=== PATIENT | male | born 1950 | race Caucasian/White ===

== ENCOUNTER 2018-05-11 10:09 | Day surgery (SDC) | payer OTHER, SELFPAY ==
--- NOTE | 2018-05-11 | PATH_ITS ---
[facility] Accession Number: [id number] . 01 Material submitted: . SIGMOID COLON POLYP . 02 Diagnosis: Biopsy, Sigmoid Colon Polyp: Hyperplastic polyp. MRV/05/12/2018 . 02 Electronically signed: . Johnny Foreman MD, Pathologist NPI- [id number] . 01 Gross description: . Received one formalin-filled container labeled with the patient's name and labeled sigmoid colon polyp. The specimen consists of a 0.4 cm portion of tissue, entirely submitted in one cassette. ([id number]) /FRR . 02 Pathologist provided ICD-10: K63.5 . 02 CPT . 569764 Specimen Comment: A duplicate report has been generated due to demographic updates. Performed at: 01 [facility] [address] [place] [address], [place], [place] [id number] MD Damian Phillips MD Phone: [phone] Performed at: 02 [facility] [address] [place], [place] [id number] MD Reshma Silva MD Phone: [phone]
[2018-05-11 11:10] VITALS: BP 145/84; PULSE 63; RESP 15; TEMP 36.4; O2SAT 94; BMI 35.9
[2018-05-11] MEDS: SODIUM CHLORIDE 0.9% 1,000 ML 200 ML IV (11:30)
--- NOTE | 2018-05-11 12:21 | PM.PREOP ---
Pre-operative Note Interval Note History & Physical reviewed/Exam performed by Physician: Yes Changes to H&P: No ASA Class (for procedural sedation): II
[2018-05-11] MEDS: MIDAZOLAM 5 MG/5 ML VIAL IV (12:35)
[2018-05-11] MEDS: fentaNYL 250 MCG/5 ML INJ IV (12:36)
[2018-05-11 12:49] VITALS: BP 131/83; PULSE 60; RESP 17; TEMP 36.7; O2SAT 94
--- NOTE | 2018-05-11 12:51 | P.OP.ENDO_ITS ---
Operative Date/Time/Diagnoses Date of procedure: 05/11/18 Procedure & Clinicians Study performed: Colonoscopy with biopsy Indications: Colon cancer screening. Last colonoscopy was 10 years ago. Sedation: 5 mg midazolam. 100 mcg fentanyl. Moderate conscious sedation was administered by the endoscopy nurse and supervised by the endoscopist. The following parameters were monitored: Oxygen saturation, heart rate, blood pressure, and response to care. Procedure Notes Procedure in detail: Prior to the procedure, history and physical was performed, and patient medications and allergies were reviewed. Preprocedure nursing history and assessment was reviewed. Patient identification and proposed procedure were verified by the physician and nurse in the procedure room. The physical status of the patient was reassessed after the procedure. After informed consent was obtained including risks, benefits, and alternatives, the scope was passed under direct vision. Throughout the procedure, the patient's blood pressure, pulse, and oxygen saturations were monitored continuously. The colonoscope was introduced through the anus and advanced to the cecum as wilder ntified by the appendiceal orifice and ileocecal valve. The patient tolerated the procedure well. Bowel prep was deemed adequate to detect polyps greater than 5 mm. ROMEO and perianal examinations were unremarkable. Retroflexion in the rectum revealed grade 1 internal hemorrhoids. Many medium mouthed diverticuli were seen in the sigmoid colon. A 4 mm sessile polyp was removed with a cold snare and retrieved. Impression: Internal hemorrhoids Sigmoid colon diverticulosis 3 mm sigmoid colon polyp removed Sedation minutes: 24 Complications: other (None. EBL minimal) Plan for aftercare: Follow-up pathology results Repeat colonoscopy at a date to be determined based on pathology results High fiber diet Resume home medications Discharge home with escort
[2018-05-11 12:54] VITALS: BP 132/79; PULSE 67; RESP 16; O2SAT 93
[2018-05-11 12:59] VITALS: BP 125/82; PULSE 60; RESP 14; O2SAT 94
[2018-05-11 13:04] VITALS: BP 126/83; PULSE 58; RESP 15; O2SAT 93
[2018-05-11 13:20] VITALS: BP 125/84; PULSE 64; RESP 16; TEMP 36.7; O2SAT 95
--- NOTE | 2018-05-11 13:30 | SUR.PHASEII ---
stable phase 2 belly soft, no nausea.
--- NOTE | 2018-06-08 16:58 | PM.HP.1 ---
History of Present Illness Chief complaint: [id number] Colonoscopy Patient History Social History household members: spouse Family & Social History Social History: household members spouse Meds Home Medications Medication Instructions Recorded Confirmed Type amlodipine 10 mg PO DAILY 05/11/18 05/11/18 History aspirin [Aspir-81] 81 mg PO DAILY 05/11/18 05/11/18 History Allergies Allergy/AdvReac Type Severity Reaction Status Date / Time Sulfa (Sulfonamide Allergy Mild Rash Verified 05/10/18 15:13 Antibiotics) Review of Systems Review of Systems All systems reviewed & are unremarkable except as noted in HPI and below Exam Vital Signs (past 8 hours): Oxygen Delivery Method Room Air Narrative Exam Narrative: Awake alert and oriented x3, pupils equal round reactive to light, heart regular rate rhythm, lungs clear to auscultation bilaterally, abdomen soft nontender nondistended, extremities without edema Assessment & Plan Assessment & Plan narrative: Colon cancer screening, colonoscopy
== END 2018-05-11 13:20 | disposition home or self-care (01) ==
PROVIDERS: Family Provider Internal Medicine; PCP Internal Medicine; Visit Provider Internal Medicine
PROC: 0DJD8ZZ Inspection of Lower Intestinal Tract, Via Natural or Artificial Opening Endoscopic (ICD-10-PCS; CPT 45378; principal; 2018-05-11 11:30)
DX: Z12.11 Encounter for screening for malignant neoplasm of colon (principal); K64.0 First degree hemorrhoids; K57.30 Diverticulosis of large intestine without perforation or abscess without bleeding; D12.5 Benign neoplasm of sigmoid colon
CPT/HCPCS: 45385; J2250; J3010

== ENCOUNTER → 2019-08-11 10:38 | Outpatient (CLI) | payer OTHER, SELFPAY ==
[2019-08-11 11:22] LABS: Alanine Aminotransferase 19 IU/L (<50); Albumin 4.3 g/dL (3.5-5.0); Albumin Globulin Ratio 1.5 (1.0-2.8); Alkaline Phosphatase 35 U/L (38-126); Aspartate Aminotransferase 24 IU/L (17-59); Bilirubin Total 0.6 mg/dL (0.2-1.3); Blood Urea Nitrogen 20 mg/dL (9-20); Calcium 9.5 mg/dL (8.4-10.2); Carbon Dioxide 25 mmol/L (22-32); Chloride 103 mmol/L (98-107); Estimated Glomerular Filt Rate > 60.0 mL/min (>60); Globulin 2.8 g/dL (1.7-4.1); Glucose 131 mg/dL (80-110); HEMOLYSIS < 15 (0-50); Potassium 4.3 mmol/L (3.4-5.1); Sodium 138 mmol/L (137-145); Total Protein 7.1 g/dL (6.3-8.2)
[2019-08-11 11:53] LABS: Prostate Specific Antigen Scrn 0.605 ng/mL (0.1-4.0)
== END ==
PROVIDERS: Family Provider Internal Medicine; PCP Student in an Organized Health Care Education/Training Program; Referring Provider Student in an Organized Health Care Education/Training Program; Visit Provider Student in an Organized Health Care Education/Training Program
DX: Z12.5 Encounter for screening for malignant neoplasm of prostate (principal); I10 Essential (primary) hypertension; Z86.19 Personal history of other infectious and parasitic diseases
CPT/HCPCS: 36415; 80053; G0103

== ENCOUNTER → 2019-10-03 08:15 | Outpatient (CLI) | payer OTHER, SELFPAY ==
--- NOTE | 2019-10-03 08:16 | DI.US.S_ITS ---
PROCEDURE: US ABD AORTA ANEURYSM SCREEN INDICATIONS: HX SMOKING TECHNIQUE: Real time scanning was performed of the aorta and iliac arteries, with image documentation. COMPARISON: None. FINDINGS: Aorta: Proximal aortic diameter measures 2.2 cm. Mid-aorta measures 2 cm. Distal aortic diameter is 1.7 cm. Iliac arteries: Right common iliac artery measures 1.4 cm. Left common iliac artery measures 1.3 cm. IMPRESSION: Negative for aneurysm. Dictated by: Ryan Viveros M.D. on 10/03/2019 at 9:10 Approved by: Ryan Viveros M.D. on 10/03/2019 at 9:11
== END ==
PROVIDERS: Family Provider Internal Medicine; PCP Student in an Organized Health Care Education/Training Program; Referring Provider Student in an Organized Health Care Education/Training Program; Visit Provider Student in an Organized Health Care Education/Training Program
DX: Z13.6 Encounter for screening for cardiovascular disorders (principal); Z87.891 Personal history of nicotine dependence
CPT/HCPCS: 76706

== ENCOUNTER → 2020-05-03 14:24 | Outpatient (CLI) | payer MEDICARE, SELFPAY ==
[2020-05-03] MEDS: COVID-19 VACC #1, MRNA(MOD) 100 MCG/0.5 ML VIAL IM (14:31)
== END ==
PROVIDERS: Family Provider Internal Medicine; PCP Student in an Organized Health Care Education/Training Program; Visit Provider Internal Medicine
DX: Z23 Encounter for immunization (principal)
CPT/HCPCS: 0011A; 91301

== ENCOUNTER → 2020-05-30 07:56 | Outpatient (CLI) | payer MEDICARE, SELFPAY ==
[2020-05-30] MEDS: COVID-19 VACC #2, MRNA(MOD) 100 MCG/0.5 ML VIAL IM (08:02)
== END ==
PROVIDERS: Family Provider Internal Medicine; PCP Student in an Organized Health Care Education/Training Program; Visit Provider Internal Medicine
DX: Z23 Encounter for immunization (principal)
CPT/HCPCS: 0012A; 91301

== ENCOUNTER → 2020-08-20 11:25 | Outpatient (CLI) | payer OTHER, SELFPAY ==
[2020-08-20 12:23] LABS: BUN Creatinine Ratio 23.5 (6-22); Blood Urea Nitrogen 16 mg/dL (9-20); Calcium 8.9 mg/dL (8.4-10.2); Carbon Dioxide 27 mmol/L (22-32); Chloride 104 mmol/L (98-107); Cholesterol 164 mg/dL (140-199); Estimated Glomerular Filt Rate > 60.0 mL/min (>60); Glucose 94 mg/dL (80-110); HDL Cholesterol 42 mg/dL (40-60); HEMOLYSIS < 15 (0-50); LDL Cholesterol Calculated 93 mg/dL (<100); Potassium 4.1 mmol/L (3.4-5.1); Sodium 136 mmol/L (137-145); Triglycerides 144 mg/dL (35-150)
== END ==
PROVIDERS: Family Provider Internal Medicine; PCP Student in an Organized Health Care Education/Training Program; Referring Provider Student in an Organized Health Care Education/Training Program; Visit Provider Student in an Organized Health Care Education/Training Program
DX: Z13.220 Encounter for screening for lipoid disorders (principal); I10 Essential (primary) hypertension
CPT/HCPCS: 36415; 80048; 80061

== ENCOUNTER → 2021-02-07 13:32 | Outpatient (CLI) | payer MEDICARE, SELFPAY ==
[2021-02-07] MEDS: COVID-19 VACC #3, MRNA(MOD) 50 MCG/0.25 ML VIAL IM (13:36)
== END ==
PROVIDERS: Family Provider Internal Medicine; PCP Student in an Organized Health Care Education/Training Program; Visit Provider Internal Medicine
DX: Z23 Encounter for immunization (principal)
CPT/HCPCS: 0013A; 91301

== ENCOUNTER → 2021-08-04 10:50 | Outpatient (CLI) | payer OTHER, SELFPAY ==
[2021-08-04 12:06] LABS: Add Manual Diff / Slide Review NO; Basophils Absolute Auto 0 /uL (0-100); Basophils Percent Auto 0.5 % (0-2); Eosinophils Absolute Auto 100 /uL (0-450); Eosinophils Percent Auto 1.8 % (2-4); Hematocrit 41.5 % (41-53); Hemoglobin 14.4 g/dL (13.5-17.5); Lymphocytes Absolute Auto 1400 /uL (1100-4500); Lymphocytes Percent Auto 27.4 % (25-40); Mean Corpuscular HGB Conc 34.6 % (30-36); Mean Corpuscular Hemoglobin 31.8 PG (26-34); Monocytes Absolute Auto 1100 /uL (0-900); Monocytes Percent Auto 20.5 % (3-14); Neutrophils Absolute Auto 2600 /uL (1500-7000); Neutrophils Percent Auto 49.8 % (50-75); Platelet Count 175 X10^3/uL (150-400); Red Blood Cell Count 4.52 X10^6/uL (4.5-5.9); Red Cell Distribution Width 13.9 % (11.6-14.8); White Blood Cell Count 5.2 X10^3/uL (4.5-11.0)
[2021-08-04 12:16] LABS: BUN Creatinine Ratio 22.4 (6-22); Blood Urea Nitrogen 17 mg/dL (9-20); Calcium 9.2 mg/dL (8.4-10.2); Carbon Dioxide 29 mmol/L (22-32); Chloride 102 mmol/L (98-107); Estimated Glomerular Filt Rate > 60 mL/min (>60); Glucose 107 mg/dL (80-110); HEMOLYSIS < 15 (0-50); Sodium 136 mmol/L (137-145)
[2021-08-04 12:25] LABS: Vitamin D 25 Hydroxy (D3) 38.4 ng/mL (30.0-100.0)
[2021-08-04 12:43] LABS: TSH w/ Reflex to FT4 1.81 uIU/mL (0.47-4.68)
[2021-08-04 13:02] LABS: Vitamin B12 317 pg/mL (239-931)
== END ==
PROVIDERS: Family Provider Internal Medicine; PCP Student in an Organized Health Care Education/Training Program; Referring Provider Student in an Organized Health Care Education/Training Program; Visit Provider Student in an Organized Health Care Education/Training Program
DX: I10 Essential (primary) hypertension (principal); R41.3 Other amnesia
CPT/HCPCS: 36415; 80048; 82306; 82607; 84443; 85025

== ENCOUNTER 2022-02-05 09:45 | Outpatient (RCR) | payer OTHER, SELFPAY ==
--- NOTE | 2021-12-25 16:00 | PT.OPPOC ---
Physical, Occupational & Speech Therapy At [facility] Current Diagnoses Bilateral primary osteoarthritis of knee (12/25/21) Difficulty in walking, not elsewhere classified (12/25/21) Visit Care Team Role Provider Type Conor Jarquin MD Attending Provider Physician Family Provider Primary Care Provider Referring Provider Specialty: Internal Medicine Address: [address] [place] [address], [address], [facility] Email: [email or web address] Plan Of Care PT-OP-T Assessment and Plan Start: 12/25/21 08:37 Freq: Status: Active Protocol: Document 12/25/21 16:00 AW (Rec: 12/30/21 08:44 AW [id number]) Physical Therapy Assessment Rehab Potential Rehabilitation Potential Good Evaluation Complexity Number of Personal Factors/Comorbidities 1-2 Number of Body Systems Impaired 1-2 Clinical Presentation at Evaluation Stable Impairments Impairments Balance,Gait,Pain,ROM,Strength Goals Three Impairment pain Short Term Goal (STG) Pt will ascend and descend 28 steps with 2/10 or less pain STG Duration 4 weeks - 01/22/22 Election Supervisor Goal (LTG) Pt will ascend and descend 28 steps without pain LTG Duration 10 weeks - 03/05/22 Two Impairment balance Election Supervisor Goal (LTG) Pt will perform single leg stance without shear 30 seconds each side as a measure of improved strength and balance. LTG Duration 10 weeks - 03/05/22 One Impairment lacks HEP Short Term Goal (STG) Pt will be instructed in HEP for hip mobility and LE strength to support therapy services provided in clinic. STG Duration 4 weeks - 01/22/22 Election Supervisor Goal (LTG) Pt will be independent with HEP for hip mobility and LE strength to improve gait and manage pain symptoms. LTG Duration 10 weeks - 03/05/22 Assessment Summary Assessment Ulices is a 71 year old man who attends outpatient physical therapy with complaints of bilateral knee pain which has been going on for about 10 years but is worsening recently and interfering with his ability to walk long distances and to manage stairs. He presents with significant mobility restrictions at both hips which appear to be related to soft tissue tightness although joint restriction can not be ruled out. His knees are stable on all stress testing and testing does not indicate intraarticular involvement. He does have a positive patellar grind test so suspect patellofemoral dysfunction. Pt is expected to benefit from skilled PT to address hip mobility, general lower extremity strength, and gait to improve his pain. Physical Therapy Plan Frequency and Duration Frequency of Treatment 1-2x/week Duration of treatment (weeks) 10 Plan of Care Start Date 12/25/21 Plan of Care End Date 03/05/22 Therapeutic Interventions Therapeutic Interventions Aquatic Therapy,Gait Training, Home Exercise Program,Manual Therapy,Neuromuscular Re- education,Self-Care/Home Management,Taping,Therapeutic Activities,Therapeutic Exercises Modalities Cold Pack/Ice Massage,Electric Stimulation,Hot Packs Next Visit Focus/Plan Next Note Type Treatment Note Next Visit Plan Warm up on bike. Review initial HEP stretches - add as tolerated. Assess stairs, squat. QS/SLR with rotation, clamshell with resist. HS curl . Sit to stand. Plan of Care Dates Plan of Care Start Date 12/25/21 Plan of Care End Date 03/05/22 Electronically Signed by: Mickie Arguelles, PT 12/30/21 0845 If you are in agreement with this Plan of Care, please return a signed and dated copy. I have reviewed this Plan of Care and certify that the skilled therapy services above are required to meet the patient?s needs. Physician Signature Date Printed Name and Credentials Clinical Instructor Signature Printed Name and Credentials
--- NOTE | 2021-12-25 16:00 | PT.OIE ---
Current Diagnoses Bilateral primary osteoarthritis of knee (12/25/21) Difficulty in walking, not elsewhere classified (12/25/21) Past Medical History (Last Updated 06/06/19 @ 20:55 by Ana Jamison) Chicken pox (~1951) Hepatitis C (~1971) Measles (~1952) Migraines (~1964) Shingles (~2019) Visit Care Team Role Provider Type Conor Jarquin MD Attending Provider Physician Family Provider Primary Care Provider Referring Provider Specialty: Internal Medicine Address: [address] [place] [address], [address], [facility] Email: [email or web address] Physical Therapy Initial Evaluation PT-OP-A Visit Information Start: 12/25/21 08:37 Freq: Status: Active Protocol: Document 12/25/21 16:00 AW (Rec: 12/25/21 08:47 AW [id number]) Out-Patient Physical Therapy Visit Information Visit Information Visit Type Initial Evaluation Visit Start Time 15:15 Visit Stop Time 16:00 Total Visit Minutes 45 Visit Number 1 Number of STOPPER SETTER Visits 0 Evaluation Information Evaluation Date 12/25/21 PT-OP-B Current Condition Start: 12/25/21 08:37 Freq: Status: Active Protocol: Document 12/25/21 16:00 AW (Rec: 12/25/21 08:47 AW [id number]) Current Condition History of Current Condition Onset Date chronic (10 years) with recent exacerbation Current Complaints pain in both knees History of Current Condition Abiodun describes 10 years of gradually worsening pain in both knees. Left is worse than right. He fell last year, landing on both knees. He has some particular difficulty walking down hill on the left side. Denies lower extremity weakness or sensation disturbance. He denies any recent injury or over exertion . Strongly wishes to avoid surgery. Elevating legs can make it better. Sometimes CBD creams help. Ibuprofen if it gets really bad. Sitting long periods makes the pain worse. Abiodun lives in [place] with spouse, Tammy. Prior Treatments and Tests No imaging Treatment Goals Patient/Caregiver Goals Kneeling for gardening. Up and down from a chair without using arms. Car transfers without pain. PT-OP-C Subjective Start: 12/25/21 08:37 Freq: Status: Active Protocol: Document 12/25/21 16:00 AW (Rec: 12/29/21 17:17 AW [id number]) OP-PT Subjective Patient Comments Patient Comments Abiodun states his chronic knee pain got worse after he fell onto his knees last year. Left hurts worse than right. OP-PT Pain Assessment Pain Assessment Grid Paper Pain Assessment Grid Completed No PT-OP-D Balance Start: 12/25/21 08:37 Freq: Status: Active Protocol: Document 12/25/21 16:00 AW (Rec: 12/29/21 17:17 AW [id number]) OP-PT Balance Assessment Standing Balance Standing Balance Comments Sitting and standing balance WFL. Balance Tests Single Limb Standing Single Limb- Right 5 sec, 8 sec Single Limb- Left 3 sec, 5 sec De Oliveira Fall Scale Copyright Permission PT-OP-F Manual Assessment Start: 12/25/21 08:37 Freq: Status: Active Protocol: Document 12/25/21 16:00 AW (Rec: 12/29/21 17:17 AW [id number]) Manual Assessments Soft Tissue Assessment Soft Tissue Mobility Assessment Palpable tightness lateral quads and hamstrings. Joint Mobility Assessment Joint Mobility Assessment Fair patellar mobility but with positive grind test. Other Manual Assessments Other Manual Assessments Hips are globally tight. With hips flexed to 90 degrees in supine, pt lacks 40-45 degrees knee extension. Rotation is severely limited both IR and ER. Hip extension ROM is limited by hip flexor tightness. PT-OP-G Mobility & Gait Start: 12/25/21 08:37 Freq: Status: Active Protocol: Document 12/25/21 16:00 AW (Rec: 12/29/21 17:17 AW [id number]) OP Mobility Evaluation Transfers Sit to Stand Indpendent but with minor use of hands OP Gait Assessment Comments Gait Comments Pt walks with fair heelstrike at initial contact and poor push off bilaterally. PT-OP-K Range of Motion Start: 12/25/21 08:37 Freq: Status: Active Protocol: Document 12/25/21 16:00 AW (Rec: 12/29/21 17:24 AW [id number]) Knee Goniometric Range of Motion Knee bilat Knee ROM WFL Yes Patient Position Supine Flexion Active (degrees) 120 Flexion Passive (degrees) 125 Extension Active (degrees) 0 Ankle and Foot Goniometric Range of Motion Ankle and Foot bilat Testing Position Supine Comments ~5 degrees bilaterally with knee extended. Slight shortening with knee flexed PT-OP-L Special Tests Start: 12/25/21 08:37 Freq: Status: Active Protocol: Document 12/25/21 16:00 AW (Rec: 12/29/21 17:26 AW [id number]) Special Tests Hip Special Tests Trendelenberg Test Results vaguely positive bilaterally Knee Special Tests stability Test Results all ligaments intact on testing; stable knee Patellar Grind Test Test Results positive bilaterally Comments left more affected than right Thessaly Test 20 Degrees Test Results negative Fidencio's Test Test Results positive bilaterally Francisca's Test Test Results positive pelvis lift at <90 deg knee flexion PT-OP-M Strength Start: 12/25/21 08:37 Freq: Status: Active Protocol: Document 12/25/21 16:00 AW (Rec: 12/29/21 17:24 AW [id number]) Hip Strength Hip Manual Muscle Testing bilat Flexion (L2) 5 Normal Extension (S1) 4 Good Abduction 4 Good External Rotation 4+ Good+ Internal Rotation 4+ Good+ Knee Strength Knee Manual Muscle Testing bilat Flexion (S2) 4+ Good+ Extension (L3) 5 Normal Comments 5/5 extension but with some pain reported PT-OP-Q Treatments Start: 12/25/21 08:37 Freq: Status: Active Protocol: Document 12/25/21 16:00 AW (Rec: 12/29/21 17:29 AW [id number]) Therapeutic Exercises Supine Exercises modified carin stretch Supine Exercise Name modified carin stretch Side bilateral Reps/Minutes 30 SH x 4 Comments HEP Sitting Exercises HS stretch Sitting Exercise Name HS stretch Side bilateral Reps/Minutes 30 SH x 4 Comments HEP Self-Care/Home Management Treatment Education Patient Education Home Exercise Program Other Education Provided initial stretches for HEP. Discussed evaluation findings and proposed a plan of care based on hip mobility and general LE strength. Pt understood and agreed. PT-OP-T Assessment and Plan Start: 12/25/21 08:37 Freq: Status: Active Protocol: Document 12/25/21 16:00 AW (Rec: 12/30/21 08:44 AW [id number]) Physical Therapy Assessment Rehab Potential Rehabilitation Potential Good Evaluation Complexity Number of Personal Factors/Comorbidities 1-2 Number of Body Systems Impaired 1-2 Clinical Presentation at Evaluation Stable Impairments Impairments Balance,Gait,Pain,ROM,Strength Goals Three Impairment pain Short Term Goal (STG) Pt will ascend and descend 28 steps with 2/10 or less pain STG Duration 4 weeks - 01/22/22 Group Home Goal (LTG) Pt will ascend and descend 28 steps without pain LTG Duration 10 weeks - 03/05/22 Two Impairment balance Group Home Goal (LTG) Pt will perform single leg stance without shear 30 seconds each side as a measure of improved strength and balance. LTG Duration 10 weeks - 03/05/22 One Impairment lacks HEP Short Term Goal (STG) Pt will be instructed in HEP for hip mobility and LE strength to support therapy services provided in clinic. STG Duration 4 weeks - 01/22/22 Group Home Goal (LTG) Pt will be independent with HEP for hip mobility and LE strength to improve gait and manage pain symptoms. LTG Duration 10 weeks - 03/05/22 Assessment Summary Assessment Ulices is a 71 year old man who attends outpatient physical therapy with complaints of bilateral knee pain which has been going on for about 10 years but is worsening recently and interfering with his ability to walk long distances and to manage stairs. He presents with significant mobility restrictions at both hips which appear to be related to soft tissue tightness although joint restriction can not be ruled out. His knees are stable on all stress testing and testing does not indicate intraarticular involvement. He does have a positive patellar grind test so suspect patellofemoral dysfunction. Pt is expected to benefit from skilled PT to address hip mobility, general lower extremity strength, and gait to improve his pain. Physical Therapy Plan Frequency and Duration Frequency of Treatment 1-2x/week Duration of treatment (weeks) 10 Plan of Care Start Date 12/25/21 Plan of Care End Date 03/05/22 Therapeutic Interventions Therapeutic Interventions Aquatic Therapy,Gait Training, Home Exercise Program,Manual Therapy,Neuromuscular Re- education,Self-Care/Home Management,Taping,Therapeutic Activities,Therapeutic Exercises Modalities Cold Pack/Ice Massage,Electric Stimulation,Hot Packs Next Visit Focus/Plan Next Note Type Treatment Note Next Visit Plan Warm up on bike. Review initial HEP stretches - add as tolerated. Assess stairs, squat. QS/SLR with rotation, clamshell with resist. HS curl . Sit to stand.
--- NOTE | 2021-12-31 12:59 | PT.OTN ---
Current Diagnoses Bilateral primary osteoarthritis of knee (12/31/21) Difficulty in walking, not elsewhere classified (12/31/21) Physical Therapy Treatment Note PT-OP-A Visit Information Start: 12/25/21 08:37 Freq: Status: Active Protocol: Document 12/31/21 08:59 AW (Rec: 12/31/21 10:36 AW [id number]) Out-Patient Physical Therapy Visit Information Visit Information Visit Type Treatment Note Visit Start Time 09:45 Visit Stop Time 10:30 Total Visit Minutes 45 Visit Number 2 Number of NEWS DIRECTOR Visits 0 Evaluation Information Evaluation Date 12/25/21 PT-OP-B Current Condition Start: 12/25/21 08:37 Freq: Status: Active Protocol: Document 12/25/21 16:00 AW (Rec: 12/25/21 08:47 AW [id number]) Current Condition History of Current Condition Onset Date chronic (10 years) with recent exacerbation Current Complaints pain in both knees History of Current Condition Abiodun describes 10 years of gradually worsening pain in both knees. Left is worse than right. He fell last year, landing on both knees. He has some particular difficulty walking down hill on the left side. Denies lower extremity weakness or sensation disturbance. He denies any recent injury or over exertion . Strongly wishes to avoid surgery. Elevating legs can make it better. Sometimes CBD creams help. Ibuprofen if it gets really bad. Sitting long periods makes the pain worse. Abiodun lives in [place] with spouse, Tammy. Prior Treatments and Tests No imaging Treatment Goals Patient/Caregiver Goals Kneeling for gardening. Up and down from a chair without using arms. Car transfers without pain. PT-OP-C Subjective Start: 12/25/21 08:37 Freq: Status: Active Protocol: Document 12/31/21 08:59 AW (Rec: 12/31/21 10:36 AW [id number]) OP-PT Subjective Patient Comments Patient Comments Did a lot of gardening yesterday. Back is feeling stiff and achey today. Stretches were hard but doable . Left feels tighter than right. PT-OP-D Balance Start: 12/25/21 08:37 Freq: Status: Active Protocol: Document 12/25/21 16:00 AW (Rec: 12/29/21 17:17 AW [id number]) OP-PT Balance Assessment Standing Balance Standing Balance Comments Sitting and standing balance WFL. Balance Tests Single Limb Standing Single Limb- Right 5 sec, 8 sec Single Limb- Left 3 sec, 5 sec De Oliveira Fall Scale Copyright Permission PT-OP-F Manual Assessment Start: 12/25/21 08:37 Freq: Status: Active Protocol: Document 12/25/21 16:00 AW (Rec: 12/29/21 17:17 AW [id number]) Manual Assessments Soft Tissue Assessment Soft Tissue Mobility Assessment Palpable tightness lateral quads and hamstrings. Joint Mobility Assessment Joint Mobility Assessment Fair patellar mobility but with positive grind test. Other Manual Assessments Other Manual Assessments Hips are globally tight. With hips flexed to 90 degrees in supine, pt lacks 40-45 degrees knee extension. Rotation is severely limited both IR and ER. Hip extension ROM is limited by hip flexor tightness. PT-OP-G Mobility & Gait Start: 12/25/21 08:37 Freq: Status: Active Protocol: Document 12/25/21 16:00 AW (Rec: 12/29/21 17:17 AW [id number]) OP Mobility Evaluation Transfers Sit to Stand Indpendent but with minor use of hands OP Gait Assessment Comments Gait Comments Pt walks with fair heelstrike at initial contact and poor push off bilaterally. PT-OP-K Range of Motion Start: 12/25/21 08:37 Freq: Status: Active Protocol: Document 12/25/21 16:00 AW (Rec: 12/29/21 17:24 AW [id number]) Knee Goniometric Range of Motion Knee bilat Knee ROM WFL Yes Patient Position Supine Flexion Active (degrees) 120 Flexion Passive (degrees) 125 Extension Active (degrees) 0 Ankle and Foot Goniometric Range of Motion Ankle and Foot bilat Testing Position Supine Comments ~5 degrees bilaterally with knee extended. Slight shortening with knee flexed PT-OP-L Special Tests Start: 12/25/21 08:37 Freq: Status: Active Protocol: Document 12/25/21 16:00 AW (Rec: 12/29/21 17:26 AW [id number]) Special Tests Hip Special Tests Trendelenberg Test Results vaguely positive bilaterally Knee Special Tests stability Test Results all ligaments intact on testing; stable knee Patellar Grind Test Test Results positive bilaterally Comments left more affected than right Thessaly Test 20 Degrees Test Results negative Fidencio's Test Test Results positive bilaterally Francisca's Test Test Results positive pelvis lift at <90 deg knee flexion PT-OP-M Strength Start: 12/25/21 08:37 Freq: Status: Active Protocol: Document 12/25/21 16:00 AW (Rec: 12/29/21 17:24 AW [id number]) Hip Strength Hip Manual Muscle Testing bilat Flexion (L2) 5 Normal Extension (S1) 4 Good Abduction 4 Good External Rotation 4+ Good+ Internal Rotation 4+ Good+ Knee Strength Knee Manual Muscle Testing bilat Flexion (S2) 4+ Good+ Extension (L3) 5 Normal Comments 5/5 extension but with some pain reported PT-OP-Q Treatments Start: 12/25/21 08:37 Freq: Status: Active Protocol: Document 12/31/21 08:59 AW (Rec: 12/31/21 10:36 AW [id number]) Cardio Equipment Bicycle (Upright) Duration (Minutes) 5 Resistance 6 Seat Position 9 Therapeutic Exercises Supine Exercises SLR Supine Exercise Name SLR - neutral and ER Side bilateral Reps/Minutes x12 Comments HEP HS stretch Supine Exercise Name HS stretch Side bilateral Reps/Minutes contract relax 6/20 x 4 modified carin stretch Supine Exercise Name modified carin stretch Side bilateral Reps/Minutes 30 SH x 4 Comments HEP Sidelying Exercises clamshell Sidelying Exercise Name clamshell Side bilateral Resistance AROM Reps/Minutes x12 Comments HEP Sitting Exercises HS stretch Sitting Exercise Name HS stretch Side bilateral Reps/Minutes 30 SH x 4 Comments HEP Other Exercises sit to stand Other Exercise Name sit to stand - assessment Comments def need for hands on elevated table Gait Training Gait Activity stairs Description stairs Treatment Focus assessment Comments slight varus on descent. pt reports increased pain Manual Therapy Treatment Joint Mobilizations patellar Joint B patellar Direction sup>inf; lat>med Grade III Comments most restriction medially; consider taping next visit Self-Care/Home Management Treatment Education Patient Education Home Exercise Program Other Education Reviewed stretches and added SLR, clamshell to HEP. Advised icing at home (pt declined in clinic). PT-OP-T Assessment and Plan Start: 12/25/21 08:37 Freq: Status: Active Protocol: Document 12/31/21 08:59 AW (Rec: 12/31/21 10:36 AW [id number]) Physical Therapy Assessment Goals Three Impairment pain Short Term Goal (STG) Pt will ascend and descend 28 steps with 2/10 or less pain STG Duration 4 weeks - 01/22/22 Long-Term Goal (LTG) Pt will ascend and descend 28 steps without pain LTG Duration 10 weeks - 03/05/22 Two Impairment balance Long-Term Goal (LTG) Pt will perform single leg stance without shear 30 seconds each side as a measure of improved strength and balance. LTG Duration 10 weeks - 03/05/22 One Impairment lacks HEP Short Term Goal (STG) Pt will be instructed in HEP for hip mobility and LE strength to support therapy services provided in clinic. STG Duration 4 weeks - 01/22/22 Inspector Wreath Goal (LTG) Pt will be independent with HEP for hip mobility and LE strength to improve gait and manage pain symptoms. LTG Duration 10 weeks - 03/05/22 Assessment Summary Assessment Abiodun tolerated all ther ex well but with a great deal of effort. Will consider taping for medial patellar glide next visit and continue with hip mobility, knee strength Physical Therapy Plan Frequency and Duration Frequency of Treatment 1-2x/week Duration of treatment (weeks) 10 Plan of Care Start Date 12/25/21 Plan of Care End Date 03/05/22 Therapeutic Interventions Therapeutic Interventions Aquatic Therapy,Gait Training, Home Exercise Program,Manual Therapy,Neuromuscular Re- education,Self-Care/Home Management,Taping,Therapeutic Activities,Therapeutic Exercises Modalities Cold Pack/Ice Massage,Electric Stimulation,Hot Packs Next Visit Focus/Plan Next Note Type Treatment Note Next Visit Plan Warm up bike. Review HEP and progress as possible. Consider taping for medial patellar glide, SKTC, bridge.
--- NOTE | 2022-01-06 16:59 | PT.OTN ---
Current Diagnoses Bilateral primary osteoarthritis of knee (01/06/22) Difficulty in walking, not elsewhere classified (01/06/22) Physical Therapy Treatment Note PT-OP-A Visit Information Start: 12/25/21 08:37 Freq: Status: Active Protocol: Document 01/06/22 14:18 AW (Rec: 01/06/22 16:59 AW [id number]) Out-Patient Physical Therapy Visit Information Visit Information Visit Type Treatment Note Visit Start Time 16:00 Visit Stop Time 16:45 Total Visit Minutes 45 Visit Number 3 Number of HEEL SORTER Visits 0 Evaluation Information Evaluation Date 12/25/21 PT-OP-B Current Condition Start: 12/25/21 08:37 Freq: Status: Active Protocol: Document 12/25/21 16:00 AW (Rec: 12/25/21 08:47 AW [id number]) Current Condition History of Current Condition Onset Date chronic (10 years) with recent exacerbation Current Complaints pain in both knees History of Current Condition Abiodun describes 10 years of gradually worsening pain in both knees. Left is worse than right. He fell last year, landing on both knees. He has some particular difficulty walking down hill on the left side. Denies lower extremity weakness or sensation disturbance. He denies any recent injury or over exertion . Strongly wishes to avoid surgery. Elevating legs can make it better. Sometimes CBD creams help. Ibuprofen if it gets really bad. Sitting long periods makes the pain worse. Abiodun lives in [place] with spouse, Tammy. Prior Treatments and Tests No imaging Treatment Goals Patient/Caregiver Goals Kneeling for gardening. Up and down from a chair without using arms. Car transfers without pain. PT-OP-C Subjective Start: 12/25/21 08:37 Freq: Status: Active Protocol: Document 01/06/22 14:18 AW (Rec: 01/06/22 16:59 AW [id number]) OP-PT Subjective Patient Comments Patient Comments Feeling more confident. Both knees improving but left is still more painful than right. Is doing exercises ~every other day. Patient Reported Progress Improving PT-OP-D Balance Start: 12/25/21 08:37 Freq: Status: Active Protocol: Document 12/25/21 16:00 AW (Rec: 12/29/21 17:17 AW [id number]) OP-PT Balance Assessment Standing Balance Standing Balance Comments Sitting and standing balance WFL. Balance Tests Single Limb Standing Single Limb- Right 5 sec, 8 sec Single Limb- Left 3 sec, 5 sec De Oliveira Fall Scale Copyright Permission PT-OP-F Manual Assessment Start: 12/25/21 08:37 Freq: Status: Active Protocol: Document 12/25/21 16:00 AW (Rec: 12/29/21 17:17 AW [id number]) Manual Assessments Soft Tissue Assessment Soft Tissue Mobility Assessment Palpable tightness lateral quads and hamstrings. Joint Mobility Assessment Joint Mobility Assessment Fair patellar mobility but with positive grind test. Other Manual Assessments Other Manual Assessments Hips are globally tight. With hips flexed to 90 degrees in supine, pt lacks 40-45 degrees knee extension. Rotation is severely limited both IR and ER. Hip extension ROM is limited by hip flexor tightness. PT-OP-G Mobility & Gait Start: 12/25/21 08:37 Freq: Status: Active Protocol: Document 12/25/21 16:00 AW (Rec: 12/29/21 17:17 AW [id number]) OP Mobility Evaluation Transfers Sit to Stand Indpendent but with minor use of hands OP Gait Assessment Comments Gait Comments Pt walks with fair heelstrike at initial contact and poor push off bilaterally. PT-OP-K Range of Motion Start: 12/25/21 08:37 Freq: Status: Active Protocol: Document 12/25/21 16:00 AW (Rec: 12/29/21 17:24 AW [id number]) Knee Goniometric Range of Motion Knee bilat Knee ROM WFL Yes Patient Position Supine Flexion Active (degrees) 120 Flexion Passive (degrees) 125 Extension Active (degrees) 0 Ankle and Foot Goniometric Range of Motion Ankle and Foot bilat Testing Position Supine Comments ~5 degrees bilaterally with knee extended. Slight shortening with knee flexed PT-OP-L Special Tests Start: 12/25/21 08:37 Freq: Status: Active Protocol: Document 12/25/21 16:00 AW (Rec: 12/29/21 17:26 AW [id number]) Special Tests Hip Special Tests Trendelenberg Test Results vaguely positive bilaterally Knee Special Tests stability Test Results all ligaments intact on testing; stable knee Patellar Grind Test Test Results positive bilaterally Comments left more affected than right Thessaly Test 20 Degrees Test Results negative Fidencio's Test Test Results positive bilaterally Francisca's Test Test Results positive pelvis lift at <90 deg knee flexion PT-OP-M Strength Start: 12/25/21 08:37 Freq: Status: Active Protocol: Document 12/25/21 16:00 AW (Rec: 12/29/21 17:24 AW [id number]) Hip Strength Hip Manual Muscle Testing bilat Flexion (L2) 5 Normal Extension (S1) 4 Good Abduction 4 Good External Rotation 4+ Good+ Internal Rotation 4+ Good+ Knee Strength Knee Manual Muscle Testing bilat Flexion (S2) 4+ Good+ Extension (L3) 5 Normal Comments 5/5 extension but with some pain reported PT-OP-Q Treatments Start: 12/25/21 08:37 Freq: Status: Active Protocol: Document 01/06/22 14:18 AW (Rec: 01/06/22 16:59 AW [id number]) Cardio Equipment Bicycle (Upright) Duration (Minutes) 5 Resistance 10 Seat Position 9 Other cued HS engagement Therapeutic Exercises Supine Exercises SKTC Supine Exercise Name SKTC Side bilateral Reps/Minutes 30 SH x 4 SLR Supine Exercise Name SLR - neutral and ER Side bilateral Reps/Minutes x12 Comments HEP review modified carin stretch Supine Exercise Name modified carin stretch Side bilateral Reps/Minutes 30 SH x 4 Comments HEP Sidelying Exercises clamshell Sidelying Exercise Name clamshell and reverse clam Side bilateral Resistance AROM Reps/Minutes x12 Comments HEP Other Exercises sit to stand Other Exercise Name sit to stand Resistance clinic only at this time Equipment Used 24, 23 22 tx mat Comments No UE support at all hts. Cued hip hinge, anterior wt shift Manual Therapy Treatment Joint Mobilizations patellar Joint B patellar Direction sup>inf; lat>med Grade III Comments most restriction medially Taping patellar Body Location patellar Treatment Focus encourage medial tracking Type of Tape KT tape Skin Inspection intact Comments Pt educated to leave on if no skin irritation. Reassess next visit Self-Care/Home Management Treatment Education Patient Education Home Exercise Program Other Education Added reverse clam, SKTC, and bridge to HEP. PT-OP-T Assessment and Plan Start: 12/25/21 08:37 Freq: Status: Active Protocol: Document 01/06/22 14:18 AW (Rec: 01/06/22 16:59 AW [id number]) Physical Therapy Assessment Goals Three Impairment pain Short Term Goal (STG) Pt will ascend and descend 28 steps with 2/10 or less pain STG Duration 4 weeks - 01/22/22 Alf Goal (LTG) Pt will ascend and descend 28 steps without pain LTG Duration 10 weeks - 03/05/22 Two Impairment balance Line Appliance Assembler Goal (LTG) Pt will perform single leg stance without shear 30 seconds each side as a measure of improved strength and balance. LTG Duration 10 weeks - 03/05/22 One Impairment lacks HEP Short Term Goal (STG) Pt will be instructed in HEP for hip mobility and LE strength to support therapy services provided in clinic. STG Duration 4 weeks - 01/22/22 Line Appliance Assembler Goal (LTG) Pt will be independent with HEP for hip mobility and LE strength to improve gait and manage pain symptoms. LTG Duration 10 weeks - 03/05/22 Assessment Summary Assessment Abiodun requires cues for knee tracking in all exercises. Will consider band at knees next visit. Taped for medial patellar glide today. Plan to continue with hip mobility and strength next visit. Physical Therapy Plan Frequency and Duration Frequency of Treatment 1-2x/week Duration of treatment (weeks) 10 Plan of Care Start Date 12/25/21 Plan of Care End Date 03/05/22 Therapeutic Interventions Therapeutic Interventions Aquatic Therapy,Gait Training, Home Exercise Program,Manual Therapy,Neuromuscular Re- education,Self-Care/Home Management,Taping,Therapeutic Activities,Therapeutic Exercises Modalities Cold Pack/Ice Massage,Electric Stimulation,Hot Packs Next Visit Focus/Plan Next Note Type Treatment Note Next Visit Plan Assess response to tape. Revisit HEP and progress as able. Consider standing hip ext and abd, heel lifts, calf stretch. Evaluate for potential left hip bursitis.
--- NOTE | 2022-01-08 13:45 | PT.OTN ---
Current Diagnoses Bilateral primary osteoarthritis of knee (01/08/22) Difficulty in walking, not elsewhere classified (01/08/22) Physical Therapy Treatment Note PT-OP-A Visit Information Start: 12/25/21 08:37 Freq: Status: Active Protocol: Document 01/08/22 12:56 AW (Rec: 01/08/22 13:45 AW [id number]) Out-Patient Physical Therapy Visit Information Visit Information Visit Type Treatment Note Visit Start Time 13:00 Visit Stop Time 13:45 Total Visit Minutes 45 Visit Number 4 Number of PLASTICS FACTORY WORKER Visits 0 Evaluation Information Evaluation Date 12/25/21 PT-OP-B Current Condition Start: 12/25/21 08:37 Freq: Status: Active Protocol: Document 12/25/21 16:00 AW (Rec: 12/25/21 08:47 AW [id number]) Current Condition History of Current Condition Onset Date chronic (10 years) with recent exacerbation Current Complaints pain in both knees History of Current Condition Abiodun describes 10 years of gradually worsening pain in both knees. Left is worse than right. He fell last year, landing on both knees. He has some particular difficulty walking down hill on the left side. Denies lower extremity weakness or sensation disturbance. He denies any recent injury or over exertion . Strongly wishes to avoid surgery. Elevating legs can make it better. Sometimes CBD creams help. Ibuprofen if it gets really bad. Sitting long periods makes the pain worse. Abiodun lives in [place] with spouse, Tammy. Prior Treatments and Tests No imaging Treatment Goals Patient/Caregiver Goals Kneeling for gardening. Up and down from a chair without using arms. Car transfers without pain. PT-OP-C Subjective Start: 12/25/21 08:37 Freq: Status: Active Protocol: Document 01/08/22 12:56 AW (Rec: 01/08/22 13:45 AW [id number]) OP-PT Subjective Patient Comments Patient Comments Pt thinks taping may be helping - at least psychologically. PT-OP-D Balance Start: 12/25/21 08:37 Freq: Status: Active Protocol: Document 12/25/21 16:00 AW (Rec: 12/29/21 17:17 AW [id number]) OP-PT Balance Assessment Standing Balance Standing Balance Comments Sitting and standing balance WFL. Balance Tests Single Limb Standing Single Limb- Right 5 sec, 8 sec Single Limb- Left 3 sec, 5 sec De Oliveira Fall Scale Copyright Permission PT-OP-F Manual Assessment Start: 12/25/21 08:37 Freq: Status: Active Protocol: Document 12/25/21 16:00 AW (Rec: 12/29/21 17:17 AW [id number]) Manual Assessments Soft Tissue Assessment Soft Tissue Mobility Assessment Palpable tightness lateral quads and hamstrings. Joint Mobility Assessment Joint Mobility Assessment Fair patellar mobility but with positive grind test. Other Manual Assessments Other Manual Assessments Hips are globally tight. With hips flexed to 90 degrees in supine, pt lacks 40-45 degrees knee extension. Rotation is severely limited both IR and ER. Hip extension ROM is limited by hip flexor tightness. PT-OP-G Mobility & Gait Start: 12/25/21 08:37 Freq: Status: Active Protocol: Document 12/25/21 16:00 AW (Rec: 12/29/21 17:17 AW [id number]) OP Mobility Evaluation Transfers Sit to Stand Indpendent but with minor use of hands OP Gait Assessment Comments Gait Comments Pt walks with fair heelstrike at initial contact and poor push off bilaterally. PT-OP-K Range of Motion Start: 12/25/21 08:37 Freq: Status: Active Protocol: Document 12/25/21 16:00 AW (Rec: 12/29/21 17:24 AW [id number]) Knee Goniometric Range of Motion Knee bilat Knee ROM WFL Yes Patient Position Supine Flexion Active (degrees) 120 Flexion Passive (degrees) 125 Extension Active (degrees) 0 Ankle and Foot Goniometric Range of Motion Ankle and Foot bilat Testing Position Supine Comments ~5 degrees bilaterally with knee extended. Slight shortening with knee flexed PT-OP-L Special Tests Start: 12/25/21 08:37 Freq: Status: Active Protocol: Document 12/25/21 16:00 AW (Rec: 12/29/21 17:26 AW [id number]) Special Tests Hip Special Tests Trendelenberg Test Results vaguely positive bilaterally Knee Special Tests stability Test Results all ligaments intact on testing; stable knee Patellar Grind Test Test Results positive bilaterally Comments left more affected than right Thessaly Test 20 Degrees Test Results negative Fidencio's Test Test Results positive bilaterally Francisca's Test Test Results positive pelvis lift at <90 deg knee flexion PT-OP-M Strength Start: 12/25/21 08:37 Freq: Status: Active Protocol: Document 12/25/21 16:00 AW (Rec: 12/29/21 17:24 AW [id number]) Hip Strength Hip Manual Muscle Testing bilat Flexion (L2) 5 Normal Extension (S1) 4 Good Abduction 4 Good External Rotation 4+ Good+ Internal Rotation 4+ Good+ Knee Strength Knee Manual Muscle Testing bilat Flexion (S2) 4+ Good+ Extension (L3) 5 Normal Comments 5/5 extension but with some pain reported PT-OP-Q Treatments Start: 12/25/21 08:37 Freq: Status: Active Protocol: Document 01/08/22 12:56 AW (Rec: 01/08/22 13:45 AW [id number]) Cardio Equipment Bicycle (Upright) Duration (Minutes) 5 Resistance 10 Seat Position 9 Other cued HS engagement Therapeutic Exercises Supine Exercises SKTC Supine Exercise Name SKTC Side bilateral Reps/Minutes 30 SH x 4 SLR Supine Exercise Name SLR - neutral and ER Side bilateral Reps/Minutes x12 Comments HEP review modified carin stretch Supine Exercise Name modified carin stretch Side bilateral Reps/Minutes 30 SH x 2 Comments HEP Sidelying Exercises clamshell Sidelying Exercise Name clamshell and reverse clam Side bilateral Resistance AROM Reps/Minutes x12 Comments HEP Sitting Exercises HS stretch Sitting Exercise Name HS stretch Side bilateral Reps/Minutes 30 SH x 4 Comments HEP Standing Exercises hip hike Standing Exercise Name hip hike Reps/Minutes x10 Comments clinic only hip ext, abd Standing Exercise Name lateral and backward resisted ambulation Side bilateral Resistance TB2 at ankles Comments clinic only heel lift Standing Exercise Name heel lift Side bilateral Reps/Minutes 2x15 Comments 1 set from floor; 1 set on step gastroc stretch Standing Exercise Name gastroc stretch Side bilateral Resistance SHAHANA, rail Reps/Minutes 30 SH x 3 Comments HEP; L tighter than R Other Exercises sit to stand Other Exercise Name sit to stand Resistance clinic only at this time Equipment Used 21 tx mat, band at knees Comments No UE support at all hts. Cued hip hinge, anterior wt shift Manual Therapy Treatment Joint Mobilizations patellar Joint B patellar Direction sup>inf; lat>med Grade III Comments Most restriction medially. Taping helpful per pt report Self-Care/Home Management Treatment Education Patient Education Home Exercise Program Other Education No changes at this time. Encouraged strength exercises every other day and stretches twice daily. PT-OP-T Assessment and Plan Start: 12/25/21 08:37 Freq: Status: Active Protocol: Document 01/08/22 12:56 AW (Rec: 01/08/22 13:45 AW [id number]) Physical Therapy Assessment Goals Three Impairment pain Short Term Goal (STG) Pt will ascend and descend 28 steps with 2/10 or less pain STG Duration 4 weeks - 01/22/22 Sheriff'S Sergeant Goal (LTG) Pt will ascend and descend 28 steps without pain LTG Duration 10 weeks - 03/05/22 Two Impairment balance Senior Living Goal (LTG) Pt will perform single leg stance without shear 30 seconds each side as a measure of improved strength and balance. LTG Duration 10 weeks - 03/05/22 One Impairment lacks HEP Short Term Goal (STG) Pt will be instructed in HEP for hip mobility and LE strength to support therapy services provided in clinic. STG Duration 4 weeks - 01/22/22 Senior Living Goal (LTG) Pt will be independent with HEP for hip mobility and LE strength to improve gait and manage pain symptoms. LTG Duration 10 weeks - 03/05/22 Assessment Summary Assessment Band at knees was helpful for bridge and for sit to stand. Pt reports left hip soreness vs pain with resisted exercise . Will continue to monitor. Encouraged pt to ice hips at home. Physical Therapy Plan Frequency and Duration Frequency of Treatment 1-2x/week Duration of treatment (weeks) 10 Plan of Care Start Date 12/25/21 Plan of Care End Date 03/05/22 Therapeutic Interventions Therapeutic Interventions Aquatic Therapy,Gait Training, Home Exercise Program,Manual Therapy,Neuromuscular Re- education,Self-Care/Home Management,Taping,Therapeutic Activities,Therapeutic Exercises Modalities Cold Pack/Ice Massage,Electric Stimulation,Hot Packs Next Visit Focus/Plan Next Note Type Treatment Note Next Visit Plan Re-tape. Revisit HEP and progress as able with increased reps or increased resistance
--- NOTE | 2022-01-12 09:50 | PT.OTN ---
Current Diagnoses Bilateral primary osteoarthritis of knee (01/12/22) Difficulty in walking, not elsewhere classified (01/12/22) Physical Therapy Treatment Note PT-OP-A Visit Information Start: 12/25/21 08:37 Freq: Status: Active Protocol: Document 01/12/22 08:55 NBM (Rec: 01/12/22 09:49 NB [id number]) Out-Patient Physical Therapy Visit Information Visit Information Visit Type Treatment Note Visit Start Time 09:00 Visit Stop Time 09:45 Total Visit Minutes 45 Visit Number 5 Number of COMMUNICATIONS TECHNOLOGIST Visits 1 PT-OP-B Current Condition Start: 12/25/21 08:37 Freq: Status: Active Protocol: Document 12/25/21 16:00 AW (Rec: 12/25/21 08:47 AW [id number]) Current Condition History of Current Condition Onset Date chronic (10 years) with recent exacerbation Current Complaints pain in both knees History of Current Condition Abiodun describes 10 years of gradually worsening pain in both knees. Left is worse than right. He fell last year, landing on both knees. He has some particular difficulty walking down hill on the left side. Denies lower extremity weakness or sensation disturbance. He denies any recent injury or over exertion . Strongly wishes to avoid surgery. Elevating legs can make it better. Sometimes CBD creams help. Ibuprofen if it gets really bad. Sitting long periods makes the pain worse. Abiodun lives in [place] with spouse, Tammy. Prior Treatments and Tests No imaging Treatment Goals Patient/Caregiver Goals Kneeling for gardening. Up and down from a chair without using arms. Car transfers without pain. PT-OP-C Subjective Start: 12/25/21 08:37 Freq: Status: Active Protocol: Document 01/12/22 08:55 NB (Rec: 01/12/22 09:49 [facility] [id number]) OP-PT Subjective Patient Comments Patient Comments Pt reports he can now go up the 10 steps to his house step over step instead of step to, and it's easier to come down. My real goal is to get up from the ground without looking like a turtle. He thinks KT tape is helping. Arnodlo keshia is hardest to do at home on soft bed. PT-OP-D Balance Start: 12/25/21 08:37 Freq: Status: Active Protocol: Document 12/25/21 16:00 AW (Rec: 12/29/21 17:17 AW [id number]) OP-PT Balance Assessment Standing Balance Standing Balance Comments Sitting and standing balance WFL. Balance Tests Single Limb Standing Single Limb- Right 5 sec, 8 sec Single Limb- Left 3 sec, 5 sec De Oliveira Fall Scale Copyright Permission PT-OP-F Manual Assessment Start: 12/25/21 08:37 Freq: Status: Active Protocol: Document 12/25/21 16:00 AW (Rec: 12/29/21 17:17 AW [id number]) Manual Assessments Soft Tissue Assessment Soft Tissue Mobility Assessment Palpable tightness lateral quads and hamstrings. Joint Mobility Assessment Joint Mobility Assessment Fair patellar mobility but with positive grind test. Other Manual Assessments Other Manual Assessments Hips are globally tight. With hips flexed to 90 degrees in supine, pt lacks 40-45 degrees knee extension. Rotation is severely limited both IR and ER. Hip extension ROM is limited by hip flexor tightness. PT-OP-G Mobility & Gait Start: 12/25/21 08:37 Freq: Status: Active Protocol: Document 12/25/21 16:00 AW (Rec: 12/29/21 17:17 AW [id number]) OP Mobility Evaluation Transfers Sit to Stand Indpendent but with minor use of hands OP Gait Assessment Comments Gait Comments Pt walks with fair heelstrike at initial contact and poor push off bilaterally. PT-OP-K Range of Motion Start: 12/25/21 08:37 Freq: Status: Active Protocol: Document 12/25/21 16:00 AW (Rec: 12/29/21 17:24 AW [id number]) Knee Goniometric Range of Motion Knee bilat Knee ROM WFL Yes Patient Position Supine Flexion Active (degrees) 120 Flexion Passive (degrees) 125 Extension Active (degrees) 0 Ankle and Foot Goniometric Range of Motion Ankle and Foot bilat Testing Position Supine Comments ~5 degrees bilaterally with knee extended. Slight shortening with knee flexed PT-OP-L Special Tests Start: 12/25/21 08:37 Freq: Status: Active Protocol: Document 12/25/21 16:00 AW (Rec: 12/29/21 17:26 AW [id number]) Special Tests Hip Special Tests Trendelenberg Test Results vaguely positive bilaterally Knee Special Tests stability Test Results all ligaments intact on testing; stable knee Patellar Grind Test Test Results positive bilaterally Comments left more affected than right Thessaly Test 20 Degrees Test Results negative Fidencio's Test Test Results positive bilaterally Francisca's Test Test Results positive pelvis lift at <90 deg knee flexion PT-OP-M Strength Start: 12/25/21 08:37 Freq: Status: Active Protocol: Document 12/25/21 16:00 AW (Rec: 12/29/21 17:24 AW [id number]) Hip Strength Hip Manual Muscle Testing bilat Flexion (L2) 5 Normal Extension (S1) 4 Good Abduction 4 Good External Rotation 4+ Good+ Internal Rotation 4+ Good+ Knee Strength Knee Manual Muscle Testing bilat Flexion (S2) 4+ Good+ Extension (L3) 5 Normal Comments 5/5 extension but with some pain reported PT-OP-Q Treatments Start: 12/25/21 08:37 Freq: Status: Active Protocol: Document 01/12/22 08:55 NBM (Rec: 01/12/22 09:49 NBM [id number]) Cardio Equipment Bicycle (Upright) Duration (Minutes) 5 Resistance 10 Seat Position 9 Other cued HS engagement Therapeutic Exercises Supine Exercises SKTC Supine Exercise Name SKTC Side bilateral Reps/Minutes 30 SH x 4 SLR Supine Exercise Name SLR - neutral and ER Side bilateral Reps/Minutes x6 ea Comments HEP review modified arnoldo stretch Supine Exercise Name modified arnoldo stretch Side bilateral Equipment Used strap Reps/Minutes 30 SH x 2 Comments HEP Sidelying Exercises clamshell Sidelying Exercise Name clamshell and reverse clam Side bilateral Resistance AROM Reps/Minutes Clam: x8, x5 w/ Lvl2 Tb, Reverse Clam x12 Comments HEP, cues for controlled eccentric Sitting Exercises HS stretch Sitting Exercise Name HS stretch Side bilateral Reps/Minutes 30 SH x 4 Comments HEP Other Exercises sit to stand Other Exercise Name sit to stand Resistance clinic only at this time Equipment Used 21 tx mat, band at knees Comments No UE support at all hts. Cued hip hinge, anterior wt shift Manual Therapy Treatment Taping patellar Body Location patellar Treatment Focus encourage medial tracking Type of Tape KT tape Skin Inspection intact Comments Pt educated to leave on if no skin irritation. Reassess next visit Self-Care/Home Management Treatment Education Patient Education Home Exercise Program Other Education HEP Review. No changes at this time. Encouraged strength exercises every other day and stretches twice daily. PT-OP-T Assessment and Plan Start: 12/25/21 08:37 Freq: Status: Active Protocol: Document 01/12/22 08:55 [facility] (Rec: 01/12/22 09:49 [facility] [id number]) Physical Therapy Assessment Goals Three Impairment pain Short Term Goal (STG) Pt will ascend and descend 28 steps with 2/10 or less pain STG Duration 4 weeks - 01/22/22 News Agent Goal (LTG) Pt will ascend and descend 28 steps without pain LTG Duration 10 weeks - 03/05/22 Two Impairment balance News Agent Goal (LTG) Pt will perform single leg stance without shear 30 seconds each side as a measure of improved strength and balance. LTG Duration 10 weeks - 03/05/22 One Impairment lacks HEP Short Term Goal (STG) Pt will be instructed in HEP for hip mobility and LE strength to support therapy services provided in clinic. STG Duration 4 weeks - 01/22/22 Shelter Goal (LTG) Pt will be independent with HEP for hip mobility and LE strength to improve gait and manage pain symptoms. LTG Duration 10 weeks - 03/05/22 Assessment Summary Assessment Pt requires cues for keeping knees behind toes w/ Stand to sit but demonstrates decreased pain and improved self- awareness w/ repetition. Pt needs cues for quad set w/ SLR after ~3-4 repetitions. Pt reports good feedback relief w / use of strap for modified Arnoldo stretch. Pt given Lvl 1 Tb for clamshells for HEP. Physical Therapy Plan Next Visit Focus/Plan Next Note Type Treatment Note Next Visit Plan Re-tape. Revisit HEP and progress as able with increased reps or increased resistance
--- NOTE | 2022-01-14 09:48 | PT.OTN ---
Current Diagnoses Bilateral primary osteoarthritis of knee (01/14/22) Difficulty in walking, not elsewhere classified (01/14/22) Physical Therapy Treatment Note PT-OP-A Visit Information Start: 12/25/21 08:37 Freq: Status: Active Protocol: Document 01/14/22 08:35 AW (Rec: 01/14/22 09:47 AW [id number]) Out-Patient Physical Therapy Visit Information Visit Information Visit Type Treatment Note Visit Start Time 09:00 Visit Stop Time 09:45 Total Visit Minutes 45 Visit Number 6 Number of TECHNICAL CABLE JOINTER Visits 0 Evaluation Information Evaluation Date 12/25/21 PT-OP-B Current Condition Start: 12/25/21 08:37 Freq: Status: Active Protocol: Document 12/25/21 16:00 AW (Rec: 12/25/21 08:47 AW [id number]) Current Condition History of Current Condition Onset Date chronic (10 years) with recent exacerbation Current Complaints pain in both knees History of Current Condition Abiodun describes 10 years of gradually worsening pain in both knees. Left is worse than right. He fell last year, landing on both knees. He has some particular difficulty walking down hill on the left side. Denies lower extremity weakness or sensation disturbance. He denies any recent injury or over exertion . Strongly wishes to avoid surgery. Elevating legs can make it better. Sometimes CBD creams help. Ibuprofen if it gets really bad. Sitting long periods makes the pain worse. Abiodun lives in [place] with spouse, Tammy. Prior Treatments and Tests No imaging Treatment Goals Patient/Caregiver Goals Kneeling for gardening. Up and down from a chair without using arms. Car transfers without pain. PT-OP-C Subjective Start: 12/25/21 08:37 Freq: Status: Active Protocol: Document 01/14/22 08:35 AW (Rec: 01/14/22 09:47 AW [id number]) OP-PT Subjective Patient Comments Patient Comments Coming down stairs is getting better. Patient Reported Progress Improving PT-OP-D Balance Start: 12/25/21 08:37 Freq: Status: Active Protocol: Document 12/25/21 16:00 AW (Rec: 12/29/21 17:17 AW [id number]) OP-PT Balance Assessment Standing Balance Standing Balance Comments Sitting and standing balance WFL. Balance Tests Single Limb Standing Single Limb- Right 5 sec, 8 sec Single Limb- Left 3 sec, 5 sec De Oliveira Fall Scale Copyright Permission PT-OP-F Manual Assessment Start: 12/25/21 08:37 Freq: Status: Active Protocol: Document 12/25/21 16:00 AW (Rec: 12/29/21 17:17 AW [id number]) Manual Assessments Soft Tissue Assessment Soft Tissue Mobility Assessment Palpable tightness lateral quads and hamstrings. Joint Mobility Assessment Joint Mobility Assessment Fair patellar mobility but with positive grind test. Other Manual Assessments Other Manual Assessments Hips are globally tight. With hips flexed to 90 degrees in supine, pt lacks 40-45 degrees knee extension. Rotation is severely limited both IR and ER. Hip extension ROM is limited by hip flexor tightness. PT-OP-G Mobility & Gait Start: 12/25/21 08:37 Freq: Status: Active Protocol: Document 12/25/21 16:00 AW (Rec: 12/29/21 17:17 AW [id number]) OP Mobility Evaluation Transfers Sit to Stand Indpendent but with minor use of hands OP Gait Assessment Comments Gait Comments Pt walks with fair heelstrike at initial contact and poor push off bilaterally. PT-OP-K Range of Motion Start: 12/25/21 08:37 Freq: Status: Active Protocol: Document 12/25/21 16:00 AW (Rec: 12/29/21 17:24 AW [id number]) Knee Goniometric Range of Motion Knee bilat Knee ROM WFL Yes Patient Position Supine Flexion Active (degrees) 120 Flexion Passive (degrees) 125 Extension Active (degrees) 0 Ankle and Foot Goniometric Range of Motion Ankle and Foot bilat Testing Position Supine Comments ~5 degrees bilaterally with knee extended. Slight shortening with knee flexed PT-OP-L Special Tests Start: 12/25/21 08:37 Freq: Status: Active Protocol: Document 12/25/21 16:00 AW (Rec: 12/29/21 17:26 AW [id number]) Special Tests Hip Special Tests Trendelenberg Test Results vaguely positive bilaterally Knee Special Tests stability Test Results all ligaments intact on testing; stable knee Patellar Grind Test Test Results positive bilaterally Comments left more affected than right Thessaly Test 20 Degrees Test Results negative Fidencio's Test Test Results positive bilaterally Francisca's Test Test Results positive pelvis lift at <90 deg knee flexion PT-OP-M Strength Start: 12/25/21 08:37 Freq: Status: Active Protocol: Document 12/25/21 16:00 AW (Rec: 12/29/21 17:24 AW [id number]) Hip Strength Hip Manual Muscle Testing bilat Flexion (L2) 5 Normal Extension (S1) 4 Good Abduction 4 Good External Rotation 4+ Good+ Internal Rotation 4+ Good+ Knee Strength Knee Manual Muscle Testing bilat Flexion (S2) 4+ Good+ Extension (L3) 5 Normal Comments 5/5 extension but with some pain reported PT-OP-Q Treatments Start: 12/25/21 08:37 Freq: Status: Active Protocol: Document 01/14/22 08:35 AW (Rec: 01/14/22 09:47 AW [id number]) Cardio Equipment Bicycle (Upright) Duration (Minutes) 5 Resistance 10 Seat Position 9 Other cued HS engagement Therapeutic Exercises Supine Exercises HS stretch Supine Exercise Name HS stretch Side bilateral Equipment Used strap Reps/Minutes 30 SH x 4 Comments option for HEP modified carin stretch Supine Exercise Name modified carin stretch Side bilateral Equipment Used strap Reps/Minutes 30 SH x 2 Comments HEP Sidelying Exercises clamshell Sidelying Exercise Name clamshell and reverse clam Side bilateral Resistance TB1 Reps/Minutes x12 Comments HEP review Sitting Exercises HS stretch Sitting Exercise Name HS stretch Side bilateral Reps/Minutes 30 SH x 4 Comments HEP Standing Exercises step ups Standing Exercise Name step up/down Side bilateral Equipment Used 6 step up; 4 step down tapping toe Reps/Minutes x15 Self-Care/Home Management Treatment Education Patient Education Home Exercise Program Other Education No changes today. Add standing hip strength and consolidate HEP next visit. PT-OP-T Assessment and Plan Start: 12/25/21 08:37 Freq: Status: Active Protocol: Document 01/14/22 08:35 AW (Rec: 01/14/22 09:47 AW [id number]) Physical Therapy Assessment Goals Three Impairment pain Short Term Goal (STG) Pt will ascend and descend 28 steps with 2/10 or less pain STG Duration 4 weeks - 01/22/22 Pressroom Worker Goal (LTG) Pt will ascend and descend 28 steps without pain LTG Duration 10 weeks - 03/05/22 Two Impairment balance Jail Goal (LTG) Pt will perform single leg stance without shear 30 seconds each side as a measure of improved strength and balance. LTG Duration 10 weeks - 03/05/22 One Impairment lacks HEP Short Term Goal (STG) Pt will be instructed in HEP for hip mobility and LE strength to support therapy services provided in clinic. STG Duration 4 weeks - 01/22/22 Jail Goal (LTG) Pt will be independent with HEP for hip mobility and LE strength to improve gait and manage pain symptoms. LTG Duration 10 weeks - 03/05/22 Assessment Summary Assessment Abiodun is progressing well and reports more comfort with stair descent at home. He tolerates all ther ex without c/o increased pain today. Physical Therapy Plan Frequency and Duration Frequency of Treatment 1-2x/week Duration of treatment (weeks) 10 Plan of Care Start Date 12/25/21 Plan of Care End Date 03/05/22 Therapeutic Interventions Therapeutic Interventions Aquatic Therapy,Gait Training, Home Exercise Program,Manual Therapy,Neuromuscular Re- education,Self-Care/Home Management,Taping,Therapeutic Activities,Therapeutic Exercises Modalities Cold Pack/Ice Massage,Electric Stimulation,Hot Packs Next Visit Focus/Plan Next Note Type Treatment Note Next Visit Plan Re-tape? Revisit HEP and progress as able with increased reps or increased resistance. Assess floor recovery.
--- NOTE | 2022-01-21 09:43 | PT.OTN ---
Current Diagnoses Bilateral primary osteoarthritis of knee (01/21/22) Difficulty in walking, not elsewhere classified (01/21/22) Physical Therapy Treatment Note PT-OP-A Visit Information Start: 12/25/21 08:37 Freq: Status: Active Protocol: Document 01/21/22 08:38 AW (Rec: 01/21/22 09:42 AW [id number]) Out-Patient Physical Therapy Visit Information Visit Information Visit Type Treatment Note Visit Start Time 09:00 Visit Stop Time 09:45 Total Visit Minutes 45 Visit Number 7 Number of MACHINE III COREMAKER Visits 0 Evaluation Information Evaluation Date 12/25/21 PT-OP-B Current Condition Start: 12/25/21 08:37 Freq: Status: Active Protocol: Document 12/25/21 16:00 AW (Rec: 12/25/21 08:47 AW [id number]) Current Condition History of Current Condition Onset Date chronic (10 years) with recent exacerbation Current Complaints pain in both knees History of Current Condition Abiodun describes 10 years of gradually worsening pain in both knees. Left is worse than right. He fell last year, landing on both knees. He has some particular difficulty walking down hill on the left side. Denies lower extremity weakness or sensation disturbance. He denies any recent injury or over exertion . Strongly wishes to avoid surgery. Elevating legs can make it better. Sometimes CBD creams help. Ibuprofen if it gets really bad. Sitting long periods makes the pain worse. Abiodun lives in [place] with spouse, Tammy. Prior Treatments and Tests No imaging Treatment Goals Patient/Caregiver Goals Kneeling for gardening. Up and down from a chair without using arms. Car transfers without pain. PT-OP-C Subjective Start: 12/25/21 08:37 Freq: Status: Active Protocol: Document 01/21/22 08:38 AW (Rec: 01/21/22 09:42 AW [id number]) OP-PT Subjective Patient Comments Patient Comments Abiodun reports improved ease with getting in and out of the car . Getting off the couch is slightly easier. Patient Reported Progress Improving PT-OP-D Balance Start: 12/25/21 08:37 Freq: Status: Active Protocol: Document 12/25/21 16:00 AW (Rec: 12/29/21 17:17 AW [id number]) OP-PT Balance Assessment Standing Balance Standing Balance Comments Sitting and standing balance WFL. Balance Tests Single Limb Standing Single Limb- Right 5 sec, 8 sec Single Limb- Left 3 sec, 5 sec De Oliveira Fall Scale Copyright Permission PT-OP-F Manual Assessment Start: 12/25/21 08:37 Freq: Status: Active Protocol: Document 12/25/21 16:00 AW (Rec: 12/29/21 17:17 AW [id number]) Manual Assessments Soft Tissue Assessment Soft Tissue Mobility Assessment Palpable tightness lateral quads and hamstrings. Joint Mobility Assessment Joint Mobility Assessment Fair patellar mobility but with positive grind test. Other Manual Assessments Other Manual Assessments Hips are globally tight. With hips flexed to 90 degrees in supine, pt lacks 40-45 degrees knee extension. Rotation is severely limited both IR and ER. Hip extension ROM is limited by hip flexor tightness. PT-OP-G Mobility & Gait Start: 12/25/21 08:37 Freq: Status: Active Protocol: Document 12/25/21 16:00 AW (Rec: 12/29/21 17:17 AW [id number]) OP Mobility Evaluation Transfers Sit to Stand Indpendent but with minor use of hands OP Gait Assessment Comments Gait Comments Pt walks with fair heelstrike at initial contact and poor push off bilaterally. PT-OP-K Range of Motion Start: 12/25/21 08:37 Freq: Status: Active Protocol: Document 12/25/21 16:00 AW (Rec: 12/29/21 17:24 AW [id number]) Knee Goniometric Range of Motion Knee bilat Knee ROM WFL Yes Patient Position Supine Flexion Active (degrees) 120 Flexion Passive (degrees) 125 Extension Active (degrees) 0 Ankle and Foot Goniometric Range of Motion Ankle and Foot bilat Testing Position Supine Comments ~5 degrees bilaterally with knee extended. Slight shortening with knee flexed PT-OP-L Special Tests Start: 12/25/21 08:37 Freq: Status: Active Protocol: Document 12/25/21 16:00 AW (Rec: 12/29/21 17:26 AW [id number]) Special Tests Hip Special Tests Trendelenberg Test Results vaguely positive bilaterally Knee Special Tests stability Test Results all ligaments intact on testing; stable knee Patellar Grind Test Test Results positive bilaterally Comments left more affected than right Thessaly Test 20 Degrees Test Results negative Fidencio's Test Test Results positive bilaterally Francisca's Test Test Results positive pelvis lift at <90 deg knee flexion PT-OP-M Strength Start: 12/25/21 08:37 Freq: Status: Active Protocol: Document 12/25/21 16:00 AW (Rec: 12/29/21 17:24 AW [id number]) Hip Strength Hip Manual Muscle Testing bilat Flexion (L2) 5 Normal Extension (S1) 4 Good Abduction 4 Good External Rotation 4+ Good+ Internal Rotation 4+ Good+ Knee Strength Knee Manual Muscle Testing bilat Flexion (S2) 4+ Good+ Extension (L3) 5 Normal Comments 5/5 extension but with some pain reported PT-OP-Q Treatments Start: 12/25/21 08:37 Freq: Status: Active Protocol: Document 01/21/22 08:38 AW (Rec: 01/21/22 09:42 AW [id number]) Cardio Equipment Bicycle (Upright) Duration (Minutes) 5 Resistance 10 Seat Position 9 Other cued HS engagement Therapeutic Exercises Sitting Exercises HS stretch Sitting Exercise Name HS stretch Side bilateral Reps/Minutes 30 SH x 4 Comments HEP Standing Exercises SLS Standing Exercise Name SLS Side bilateral Comments R 17 sec avg; L 14 sec avg; HEP step ups Standing Exercise Name step up/down Side bilateral Equipment Used 6 step up; 4 step down tapping heel Reps/Minutes x15 Comments cued glute firing in step up Other Exercises sit to stand Other Exercise Name sit to stand Resistance add to HEP Equipment Used mesh chair + blue foam; TB2 at knees Reps/Minutes 2x10 Comments No UE support. Cued hip hinge, anterior wt shift Self-Care/Home Management Treatment Education Patient Education Home Exercise Program Other Education Added sit to stand and SLS for HEP. PT-OP-T Assessment and Plan Start: 12/25/21 08:37 Freq: Status: Active Protocol: Document 01/21/22 08:38 AW (Rec: 01/21/22 09:42 AW [id number]) Physical Therapy Assessment Goals Three Impairment pain Short Term Goal (STG) Pt will ascend and descend 28 steps with 2/10 or less pain STG Duration 4 weeks - 01/22/22 Jail Goal (LTG) Pt will ascend and descend 28 steps without pain LTG Duration 10 weeks - 03/05/22 Two Impairment balance Parcel Wrapper Goal (LTG) Pt will perform single leg stance without shear 30 seconds each side as a measure of improved strength and balance. LTG Duration 10 weeks - 03/05/22 One Impairment lacks HEP Short Term Goal (STG) Pt will be instructed in HEP for hip mobility and LE strength to support therapy services provided in clinic. STG Duration 4 weeks - 01/22/22 Parcel Wrapper Goal (LTG) Pt will be independent with HEP for hip mobility and LE strength to improve gait and manage pain symptoms. LTG Duration 10 weeks - 03/05/22 Assessment Summary Assessment Abiodun continues to do well and has improved knee posture with functional tasks today. He responds well to cues for glute drive to reduce stress on knees. Will continue to progress hip mobility and strength. Plan to reassess stairs next week. Physical Therapy Plan Frequency and Duration Frequency of Treatment 1-2x/week Duration of treatment (weeks) 10 Plan of Care Start Date 12/25/21 Plan of Care End Date 03/05/22 Therapeutic Interventions Therapeutic Interventions Aquatic Therapy,Gait Training, Home Exercise Program,Manual Therapy,Neuromuscular Re- education,Self-Care/Home Management,Taping,Therapeutic Activities,Therapeutic Exercises Modalities Cold Pack/Ice Massage,Electric Stimulation,Hot Packs Next Visit Focus/Plan Next Note Type Treatment Note Next Visit Plan Re-tape? Revisit HEP and progress as able with increased reps or increased resistance. Assess floor recovery.
--- NOTE | 2022-01-28 12:53 | PT.OTN ---
Current Diagnoses Bilateral primary osteoarthritis of knee (01/28/22) Difficulty in walking, not elsewhere classified (01/28/22) Physical Therapy Treatment Note PT-OP-A Visit Information Start: 12/25/21 08:37 Freq: Status: Active Protocol: Document 01/28/22 08:47 AW (Rec: 01/28/22 09:47 AW [id number]) Out-Patient Physical Therapy Visit Information Visit Information Visit Type Treatment Note Visit Start Time 09:00 Visit Stop Time 09:40 Total Visit Minutes 40 Visit Number 8 Number of ATTENDANCE CLERK Visits 0 Evaluation Information Evaluation Date 12/25/21 PT-OP-B Current Condition Start: 12/25/21 08:37 Freq: Status: Active Protocol: Document 12/25/21 16:00 AW (Rec: 12/25/21 08:47 AW [id number]) Current Condition History of Current Condition Onset Date chronic (10 years) with recent exacerbation Current Complaints pain in both knees History of Current Condition Abiodun describes 10 years of gradually worsening pain in both knees. Left is worse than right. He fell last year, landing on both knees. He has some particular difficulty walking down hill on the left side. Denies lower extremity weakness or sensation disturbance. He denies any recent injury or over exertion . Strongly wishes to avoid surgery. Elevating legs can make it better. Sometimes CBD creams help. Ibuprofen if it gets really bad. Sitting long periods makes the pain worse. Abiodun lives in [place] with spouse, Tammy. Prior Treatments and Tests No imaging Treatment Goals Patient/Caregiver Goals Kneeling for gardening. Up and down from a chair without using arms. Car transfers without pain. PT-OP-C Subjective Start: 12/25/21 08:37 Freq: Status: Active Protocol: Document 01/28/22 08:47 AW (Rec: 01/28/22 09:47 AW [id number]) OP-PT Subjective Patient Comments Patient Comments Has been working on sit to stands from dining room chair at home. Can get up from the couch using only one hand instead of both. PT-OP-D Balance Start: 12/25/21 08:37 Freq: Status: Active Protocol: Document 12/25/21 16:00 AW (Rec: 12/29/21 17:17 AW [id number]) OP-PT Balance Assessment Standing Balance Standing Balance Comments Sitting and standing balance WFL. Balance Tests Single Limb Standing Single Limb- Right 5 sec, 8 sec Single Limb- Left 3 sec, 5 sec De Oliveira Fall Scale Copyright Permission PT-OP-F Manual Assessment Start: 12/25/21 08:37 Freq: Status: Active Protocol: Document 12/25/21 16:00 AW (Rec: 12/29/21 17:17 AW [id number]) Manual Assessments Soft Tissue Assessment Soft Tissue Mobility Assessment Palpable tightness lateral quads and hamstrings. Joint Mobility Assessment Joint Mobility Assessment Fair patellar mobility but with positive grind test. Other Manual Assessments Other Manual Assessments Hips are globally tight. With hips flexed to 90 degrees in supine, pt lacks 40-45 degrees knee extension. Rotation is severely limited both IR and ER. Hip extension ROM is limited by hip flexor tightness. PT-OP-G Mobility & Gait Start: 12/25/21 08:37 Freq: Status: Active Protocol: Document 12/25/21 16:00 AW (Rec: 12/29/21 17:17 AW [id number]) OP Mobility Evaluation Transfers Sit to Stand Indpendent but with minor use of hands OP Gait Assessment Comments Gait Comments Pt walks with fair heelstrike at initial contact and poor push off bilaterally. PT-OP-K Range of Motion Start: 12/25/21 08:37 Freq: Status: Active Protocol: Document 12/25/21 16:00 AW (Rec: 12/29/21 17:24 AW [id number]) Knee Goniometric Range of Motion Knee bilat Knee ROM WFL Yes Patient Position Supine Flexion Active (degrees) 120 Flexion Passive (degrees) 125 Extension Active (degrees) 0 Ankle and Foot Goniometric Range of Motion Ankle and Foot bilat Testing Position Supine Comments ~5 degrees bilaterally with knee extended. Slight shortening with knee flexed PT-OP-L Special Tests Start: 12/25/21 08:37 Freq: Status: Active Protocol: Document 12/25/21 16:00 AW (Rec: 12/29/21 17:26 AW [id number]) Special Tests Hip Special Tests Trendelenberg Test Results vaguely positive bilaterally Knee Special Tests stability Test Results all ligaments intact on testing; stable knee Patellar Grind Test Test Results positive bilaterally Comments left more affected than right Thessaly Test 20 Degrees Test Results negative Fidencio's Test Test Results positive bilaterally Francisca's Test Test Results positive pelvis lift at <90 deg knee flexion PT-OP-M Strength Start: 12/25/21 08:37 Freq: Status: Active Protocol: Document 12/25/21 16:00 AW (Rec: 12/29/21 17:24 AW [id number]) Hip Strength Hip Manual Muscle Testing bilat Flexion (L2) 5 Normal Extension (S1) 4 Good Abduction 4 Good External Rotation 4+ Good+ Internal Rotation 4+ Good+ Knee Strength Knee Manual Muscle Testing bilat Flexion (S2) 4+ Good+ Extension (L3) 5 Normal Comments 5/5 extension but with some pain reported PT-OP-Q Treatments Start: 12/25/21 08:37 Freq: Status: Active Protocol: Document 01/28/22 08:47 AW (Rec: 01/28/22 09:47 AW [id number]) Cardio Equipment Bicycle (Upright) Duration (Minutes) 5 Resistance 10 Seat Position 9 Other cued HS engagement Therapeutic Exercises Supine Exercises SKTC Supine Exercise Name SKTC Side bilateral Reps/Minutes 30 SH x 4 Comments on floor Sidelying Exercises hip abd Sidelying Exercise Name hip abd Side bilateral Resistance AROM Reps/Minutes x8 Comments pt tends to flex at hip without PT stabilization Standing Exercises step ups Standing Exercise Name step up Side bilateral Equipment Used 6 L; 8 R Reps/Minutes x15 Comments cued glute firing in step up hip ext, abd Standing Exercise Name lateral and backward resisted ambulation; monster walks Side bilateral Resistance TB2 at ankles Comments HEP Other Exercises sit to stand Other Exercise Name sit to stand Resistance add to HEP Equipment Used mesh chair; TB2 at knees Reps/Minutes x5; x3 (to failure) Comments No UE support. Cued hip hinge, anterior wt shift Therapeutic Activity Therapeutic Activity floor recovery Name floor recovery Reps/Minutes 10 min Comments quadruped to SL to supine and reverse SBA. To 1/2 kneeling BLE (easier with RLE forward). CGA to stand from half-kneel - hip extension in tall kneeling - half-kneeling balance Gait Training Gait Activity stairs Description stairs Device Used none Level of Assistance IND Surface lobby stairs Distance/Duration up/down 28 steps Treatment Focus assessment Comments no increase in pain during or after descent. no sharp pain PT-OP-T Assessment and Plan Start: 12/25/21 08:37 Freq: Status: Active Protocol: Document 01/28/22 08:47 AW (Rec: 01/28/22 09:47 AW [id number]) Physical Therapy Assessment Goals Three Impairment pain Short Term Goal (STG) Pt will ascend and descend 28 steps with 2/10 or less pain 01/28/22 GOAL MET STG Duration 4 weeks - 01/22/22 GOAL MET Long-Term Goal (LTG) Pt will ascend and descend 28 steps without pain LTG Duration 10 weeks - 03/05/22 Two Impairment balance Long-Term Goal (LTG) Pt will perform single leg stance without shear 30 seconds each side as a measure of improved strength and balance. LTG Duration 10 weeks - 03/05/22 One Impairment lacks HEP Short Term Goal (STG) Pt will be instructed in HEP for hip mobility and LE strength to support therapy services provided in clinic. STG Duration 4 weeks - 01/22/22 GOAL MET Hand Fretted Instrument Maker Goal (LTG) Pt will be independent with HEP for hip mobility and LE strength to improve gait and manage pain symptoms. LTG Duration 10 weeks - 03/05/22 Assessment Summary Assessment Good progress toward goals noted today. Pt able to descend lobby stairs with 1/10 pain and no increase. Assessed and practiced floor recovery today. Discussed progressing step ups to strengthen for floor recovery. Pt feels good about progress and is likely nearing readiness for discharge - perhaps after next visit. Physical Therapy Plan Frequency and Duration Frequency of Treatment 1-2x/week Duration of treatment (weeks) 10 Plan of Care Start Date 12/25/21 Plan of Care End Date 03/05/22 Therapeutic Interventions Therapeutic Interventions Aquatic Therapy,Gait Training, Home Exercise Program,Manual Therapy,Neuromuscular Re- education,Self-Care/Home Management,Taping,Therapeutic Activities,Therapeutic Exercises Modalities Cold Pack/Ice Massage,Electric Stimulation,Hot Packs Next Visit Focus/Plan Next Note Type Treatment Note Next Visit Plan Re-tape? Assess readiness for discharge
--- NOTE | 2022-02-02 10:19 | PT.OTN ---
Current Diagnoses Bilateral primary osteoarthritis of knee (02/02/22) Difficulty in walking, not elsewhere classified (02/02/22) Physical Therapy Treatment Note PT-OP-A Visit Information Start: 12/25/21 08:37 Freq: Status: Active Protocol: Document 02/02/22 08:47 NBM (Rec: 02/02/22 10:18 [facility] [id number]) Out-Patient Physical Therapy Visit Information Visit Information Visit Type Treatment Note Visit Note D/C next visit? Student STOCK CONTROLLER present for partial treatment session w/ pt consent. Visit Start Time 08:55 Visit Stop Time 09:40 Total Visit Minutes 45 Visit Number 9 Number of STOCK CONTROLLER Visits 1 Evaluation Information Evaluation Date 12/25/21 PT-OP-B Current Condition Start: 12/25/21 08:37 Freq: Status: Active Protocol: Document 12/25/21 16:00 AW (Rec: 12/25/21 08:47 AW [id number]) Current Condition History of Current Condition Onset Date chronic (10 years) with recent exacerbation Current Complaints pain in both knees History of Current Condition Abiodun describes 10 years of gradually worsening pain in both knees. Left is worse than right. He fell last year, landing on both knees. He has some particular difficulty walking down hill on the left side. Denies lower extremity weakness or sensation disturbance. He denies any recent injury or over exertion . Strongly wishes to avoid surgery. Elevating legs can make it better. Sometimes CBD creams help. Ibuprofen if it gets really bad. Sitting long periods makes the pain worse. Abiodun lives in [place] with spouse, Tammy. Prior Treatments and Tests No imaging Treatment Goals Patient/Caregiver Goals Kneeling for gardening. Up and down from a chair without using arms. Car transfers without pain. PT-OP-C Subjective Start: 12/25/21 08:37 Freq: Status: Active Protocol: Document 02/02/22 08:47 NBM (Rec: 02/02/22 10:18 [facility] [id number]) OP-PT Subjective Patient Comments Patient Comments Abiodun reports he is doing better over all. He feels the last big thing he wants to work on is getting up from the floor. He states his balance is weaker on his left than his right. He can get out of a chair without using his hands. His knees ached in a good way after his last appointment. PT-OP-D Balance Start: 12/25/21 08:37 Freq: Status: Active Protocol: Document 12/25/21 16:00 AW (Rec: 12/29/21 17:17 AW [id number]) OP-PT Balance Assessment Standing Balance Standing Balance Comments Sitting and standing balance WFL. Balance Tests Single Limb Standing Single Limb- Right 5 sec, 8 sec Single Limb- Left 3 sec, 5 sec De Oliveira Fall Scale Copyright Permission PT-OP-F Manual Assessment Start: 12/25/21 08:37 Freq: Status: Active Protocol: Document 12/25/21 16:00 AW (Rec: 12/29/21 17:17 AW [id number]) Manual Assessments Soft Tissue Assessment Soft Tissue Mobility Assessment Palpable tightness lateral quads and hamstrings. Joint Mobility Assessment Joint Mobility Assessment Fair patellar mobility but with positive grind test. Other Manual Assessments Other Manual Assessments Hips are globally tight. With hips flexed to 90 degrees in supine, pt lacks 40-45 degrees knee extension. Rotation is severely limited both IR and ER. Hip extension ROM is limited by hip flexor tightness. PT-OP-G Mobility & Gait Start: 12/25/21 08:37 Freq: Status: Active Protocol: Document 12/25/21 16:00 AW (Rec: 12/29/21 17:17 AW [id number]) OP Mobility Evaluation Transfers Sit to Stand Indpendent but with minor use of hands OP Gait Assessment Comments Gait Comments Pt walks with fair heelstrike at initial contact and poor push off bilaterally. PT-OP-K Range of Motion Start: 12/25/21 08:37 Freq: Status: Active Protocol: Document 12/25/21 16:00 AW (Rec: 12/29/21 17:24 AW [id number]) Knee Goniometric Range of Motion Knee bilat Knee ROM WFL Yes Patient Position Supine Flexion Active (degrees) 120 Flexion Passive (degrees) 125 Extension Active (degrees) 0 Ankle and Foot Goniometric Range of Motion Ankle and Foot bilat Testing Position Supine Comments ~5 degrees bilaterally with knee extended. Slight shortening with knee flexed PT-OP-L Special Tests Start: 12/25/21 08:37 Freq: Status: Active Protocol: Document 12/25/21 16:00 AW (Rec: 12/29/21 17:26 AW [id number]) Special Tests Hip Special Tests Trendelenberg Test Results vaguely positive bilaterally Knee Special Tests stability Test Results all ligaments intact on testing; stable knee Patellar Grind Test Test Results positive bilaterally Comments left more affected than right Thessaly Test 20 Degrees Test Results negative Fidencio's Test Test Results positive bilaterally Francisca's Test Test Results positive pelvis lift at <90 deg knee flexion PT-OP-M Strength Start: 12/25/21 08:37 Freq: Status: Active Protocol: Document 12/25/21 16:00 AW (Rec: 12/29/21 17:24 AW [id number]) Hip Strength Hip Manual Muscle Testing bilat Flexion (L2) 5 Normal Extension (S1) 4 Good Abduction 4 Good External Rotation 4+ Good+ Internal Rotation 4+ Good+ Knee Strength Knee Manual Muscle Testing bilat Flexion (S2) 4+ Good+ Extension (L3) 5 Normal Comments 5/5 extension but with some pain reported PT-OP-Q Treatments Start: 12/25/21 08:37 Freq: Status: Active Protocol: Document 02/02/22 08:47 [facility] (Rec: 02/02/22 10:18 [facility] [id number]) Cardio Equipment Bicycle (Upright) Duration (Minutes) 5 Resistance 10 Seat Position 9 Other cued HS engagement Therapeutic Exercises Sitting Exercises HS stretch Sitting Exercise Name HS stretch Side bilateral Reps/Minutes 30 SH x 4 Standing Exercises SLS Standing Exercise Name SLS Side bilateral Equipment Used rail prn Reps/Minutes alt trials R: 19s, 23s, 21s L: 17s, 8s, 8s Comments R 21 sec avg; L 11s sec avg step ups Standing Exercise Name step up/down Side bilateral Equipment Used 6 step up; 4 step down tapping heel, rail prn Reps/Minutes x15 Comments cued glute firing and high knee in step up hip ext, abd Standing Exercise Name lateral and backward resisted ambulation; monster walks Side bilateral Resistance TB2 at ankles Comments HEP - cue for heels apart fwd/ bwd to maintain step width, slow ecc. Other Exercises sit to stand Other Exercise Name sit to stand Resistance add to HEP Equipment Used mesh chair; TB2 at knees Reps/Minutes x5; x5 (to failure) Comments No UE support. Cued hip hinge, anterior wt shift, cued slower ecc. Therapeutic Activity Therapeutic Activity floor recovery Name floor recovery Reps/Minutes 10 min Comments quadruped to SL to supine and reverse SBA. To 1/2 kneeling BLE (easier with RLE forward). SBA to stand from half-kneel - hip extension in tall kneeling (d/t neuropathy pt can manually check foot position w/ hands from tall kneeling) - half-kneeling balance Manual Therapy Treatment Taping patellar Body Location patellar Treatment Focus encourage medial tracking Type of Tape KT tape Skin Inspection intact Comments Pt educated to leave on if no skin irritation. Reassess next visit Self-Care/Home Management Treatment Education Patient Education Home Exercise Program Other Education Added to HEP: resisted ambulation - Lvl2 Tb given, HO declined. PT-OP-T Assessment and Plan Start: 12/25/21 08:37 Freq: Status: Active Protocol: Document 02/02/22 08:47 NBM (Rec: 02/02/22 10:18 NBM [id number]) Physical Therapy Assessment Goals Three Impairment pain Short Term Goal (STG) Pt will ascend and descend 28 steps with 2/10 or less pain 01/28/22 GOAL MET STG Duration 4 weeks - 01/22/22 GOAL MET Custodial Goal (LTG) Pt will ascend and descend 28 steps without pain LTG Duration 10 weeks - 03/05/22 Two Impairment balance Marine Mechanic Goal (LTG) Pt will perform single leg stance without shear 30 seconds each side as a measure of improved strength and balance. 02/02/22: R: 21s avg (19s, 23s , 21s) L: 11s avg (17s, 8s, 8s ) LTG Duration 10 weeks - 03/05/22 One Impairment lacks HEP Short Term Goal (STG) Pt will be instructed in HEP for hip mobility and LE strength to support therapy services provided in clinic. STG Duration 4 weeks - 01/22/22 GOAL MET Marine Mechanic Goal (LTG) Pt will be independent with HEP for hip mobility and LE strength to improve gait and manage pain symptoms. LTG Duration 10 weeks - 03/05/22 Assessment Summary Assessment Abiodun continues to progress LE strength as demonstrated with 1/2 kneel to standing SBA today instead of CGA and with Sit to stand reps increased from x5, x3 to 2x5 to failure w/ emphasis on controlled eccentric lowering w/ 5 second countdown before seat contact . Pt was able to complete sit to stand without knee discomfort. Resisted ambulation added to HEP w/ cues for keeping heels apart to maintain step width- Lvl2 Tb given, HO declined. Pt feels ready for discharge and rescheduled from STOCK CONTROLLER to evaluating PT next visit. Physical Therapy Plan Frequency and Duration Frequency of Treatment 1-2x/week Duration of treatment (weeks) 10 Plan of Care Start Date 12/25/21 Plan of Care End Date 03/05/22 Therapeutic Interventions Therapeutic Interventions Aquatic Therapy,Gait Training, Home Exercise Program,Manual Therapy,Neuromuscular Re- education,Self-Care/Home Management,Taping,Therapeutic Activities,Therapeutic Exercises Modalities Cold Pack/Ice Massage,Electric Stimulation,Hot Packs Next Visit Focus/Plan Next Note Type Treatment Note Next Visit Plan Assess for discharge. Re-tape?
--- NOTE | 2022-02-05 10:31 | PT.OTN ---
Current Diagnoses Bilateral primary osteoarthritis of knee (02/05/22) Difficulty in walking, not elsewhere classified (02/05/22) Physical Therapy Treatment Note PT-OP-A Visit Information Start: 12/25/21 08:37 Freq: Status: Active Protocol: Document 02/05/22 09:24 AW (Rec: 02/05/22 10:31 AW [id number]) Out-Patient Physical Therapy Visit Information Visit Information Visit Type Discharge Summary Visit Start Time 09:45 Visit Stop Time 10:30 Total Visit Minutes 45 Visit Number 10 Number of TELERADIOLOGIST Visits 0 Evaluation Information Evaluation Date 12/25/21 PT-OP-B Current Condition Start: 12/25/21 08:37 Freq: Status: Active Protocol: Document 12/25/21 16:00 AW (Rec: 12/25/21 08:47 AW [id number]) Current Condition History of Current Condition Onset Date chronic (10 years) with recent exacerbation Current Complaints pain in both knees History of Current Condition Abiodun describes 10 years of gradually worsening pain in both knees. Left is worse than right. He fell last year, landing on both knees. He has some particular difficulty walking down hill on the left side. Denies lower extremity weakness or sensation disturbance. He denies any recent injury or over exertion . Strongly wishes to avoid surgery. Elevating legs can make it better. Sometimes CBD creams help. Ibuprofen if it gets really bad. Sitting long periods makes the pain worse. Abiodun lives in [place] with spouse, Tammy. Prior Treatments and Tests No imaging Treatment Goals Patient/Caregiver Goals Kneeling for gardening. Up and down from a chair without using arms. Car transfers without pain. PT-OP-C Subjective Start: 12/25/21 08:37 Freq: Status: Active Protocol: Document 02/05/22 09:24 AW (Rec: 02/05/22 10:31 AW [id number]) OP-PT Subjective Patient Comments Patient Comments Abiodun is walking more, feels it is easier to move around. Can go up and down hills with less pain - more like soreness afterward. Would like to review HEP today. PT-OP-D Balance Start: 12/25/21 08:37 Freq: Status: Active Protocol: Document 12/25/21 16:00 AW (Rec: 12/29/21 17:17 AW [id number]) OP-PT Balance Assessment Standing Balance Standing Balance Comments Sitting and standing balance WFL. Balance Tests Single Limb Standing Single Limb- Right 5 sec, 8 sec Single Limb- Left 3 sec, 5 sec De Oliveira Fall Scale Copyright Permission PT-OP-F Manual Assessment Start: 12/25/21 08:37 Freq: Status: Active Protocol: Document 12/25/21 16:00 AW (Rec: 12/29/21 17:17 AW [id number]) Manual Assessments Soft Tissue Assessment Soft Tissue Mobility Assessment Palpable tightness lateral quads and hamstrings. Joint Mobility Assessment Joint Mobility Assessment Fair patellar mobility but with positive grind test. Other Manual Assessments Other Manual Assessments Hips are globally tight. With hips flexed to 90 degrees in supine, pt lacks 40-45 degrees knee extension. Rotation is severely limited both IR and ER. Hip extension ROM is limited by hip flexor tightness. PT-OP-G Mobility & Gait Start: 12/25/21 08:37 Freq: Status: Active Protocol: Document 12/25/21 16:00 AW (Rec: 12/29/21 17:17 AW [id number]) OP Mobility Evaluation Transfers Sit to Stand Indpendent but with minor use of hands OP Gait Assessment Comments Gait Comments Pt walks with fair heelstrike at initial contact and poor push off bilaterally. PT-OP-K Range of Motion Start: 12/25/21 08:37 Freq: Status: Active Protocol: Document 12/25/21 16:00 AW (Rec: 12/29/21 17:24 AW [id number]) Knee Goniometric Range of Motion Knee bilat Knee ROM WFL Yes Patient Position Supine Flexion Active (degrees) 120 Flexion Passive (degrees) 125 Extension Active (degrees) 0 Ankle and Foot Goniometric Range of Motion Ankle and Foot bilat Testing Position Supine Comments ~5 degrees bilaterally with knee extended. Slight shortening with knee flexed PT-OP-L Special Tests Start: 12/25/21 08:37 Freq: Status: Active Protocol: Document 12/25/21 16:00 AW (Rec: 12/29/21 17:26 AW [id number]) Special Tests Hip Special Tests Trendelenberg Test Results vaguely positive bilaterally Knee Special Tests stability Test Results all ligaments intact on testing; stable knee Patellar Grind Test Test Results positive bilaterally Comments left more affected than right Thessaly Test 20 Degrees Test Results negative Fidencio's Test Test Results positive bilaterally Francisca's Test Test Results positive pelvis lift at <90 deg knee flexion PT-OP-M Strength Start: 12/25/21 08:37 Freq: Status: Active Protocol: Document 12/25/21 16:00 AW (Rec: 12/29/21 17:24 AW [id number]) Hip Strength Hip Manual Muscle Testing bilat Flexion (L2) 5 Normal Extension (S1) 4 Good Abduction 4 Good External Rotation 4+ Good+ Internal Rotation 4+ Good+ Knee Strength Knee Manual Muscle Testing bilat Flexion (S2) 4+ Good+ Extension (L3) 5 Normal Comments 5/5 extension but with some pain reported PT-OP-Q Treatments Start: 12/25/21 08:37 Freq: Status: Active Protocol: Document 02/05/22 09:24 AW (Rec: 02/05/22 10:31 AW [id number]) Cardio Equipment Bicycle (Upright) Duration (Minutes) 5 Resistance 10 Seat Position 9 Other cued HS engagement Therapeutic Exercises Sitting Exercises HS stretch Sitting Exercise Name HS stretch Side bilateral Reps/Minutes 30 SH x 4 Standing Exercises hip flexor stretch Standing Exercise Name hip flexor stretch - 1/2 kneel and standing Comments options for HEP SLS Standing Exercise Name SLS Side bilateral Equipment Used rail prn Reps/Minutes alt trials Comments improving LLE stability step ups Standing Exercise Name step up/down; lateral step up Side bilateral Equipment Used 6 step up; 4 step down tapping heel, rail prn Reps/Minutes x15 Comments cued glute firing and high knee in step up hip ext, abd Standing Exercise Name lateral and backward resisted ambulation; monster walks Side bilateral Resistance TB2 at ankles Comments HEP - cue for heels apart fwd/ bwd to maintain step width, slow ecc. gastroc stretch Standing Exercise Name gastroc stretch Side bilateral Resistance SHAHANA, rail Reps/Minutes 30 SH x 3 Comments HEP; L tighter than R Other Exercises sit to stand Other Exercise Name sit to stand Resistance add to HEP Equipment Used mesh chair; TB2 at knees Comments No UE support. Cued hip hinge, anterior wt shift, cued slower ecc. Therapeutic Activity Therapeutic Activity floor recovery Name floor recovery Comments quadruped to SL to supine and reverse SBA. To 1/2 kneeling BLE (easier with RLE forward). SBA to stand from half-kneel - half-kneel hip flexor stretch - half-kneeling balance Self-Care/Home Management Treatment Education Patient Education Home Exercise Program Other Education consolidated HEP for discharge PT-OP-T Assessment and Plan Start: 12/25/21 08:37 Freq: Status: Active Protocol: Document 02/05/22 09:24 AW (Rec: 02/05/22 10:31 AW [id number]) Physical Therapy Assessment Goals Three Impairment pain Short Term Goal (STG) Pt will ascend and descend 28 steps with 2/10 or less pain 01/28/22 GOAL MET STG Duration 4 weeks - 01/22/22 GOAL MET Longterm Goal (LTG) Pt will ascend and descend 28 steps without pain LTG Duration 10 weeks - 03/05/22 Two Impairment balance Longterm Goal (LTG) Pt will perform single leg stance without shear 30 seconds each side as a measure of improved strength and balance. 02/02/22: R: 21s avg (19s, 23s , 21s) L: 11s avg (17s, 8s, 8s ) LTG Duration 10 weeks - 03/05/22 - PROGRESS ABOVE One Impairment lacks HEP Short Term Goal (STG) Pt will be instructed in HEP for hip mobility and LE strength to support therapy services provided in clinic. STG Duration 4 weeks - 01/22/22 GOAL MET Longterm Goal (LTG) Pt will be independent with HEP for hip mobility and LE strength to improve gait and manage pain symptoms. LTG Duration 10 weeks - 03/05/22 - GOAL MET Assessment Summary Assessment Abiodun has progressed well with single leg strength and balance. He reports his knee pain is significantly less intense and less frequent. Consilidated HEP today in preparation for discharge. Encouraged pt to continue sit to stands from a height that is challenging but not painful . Physical Therapy Plan Frequency and Duration Frequency of Treatment 1-2x/week Duration of treatment (weeks) 10 Plan of Care Start Date 12/25/21 Plan of Care End Date 03/05/22 Therapeutic Interventions Therapeutic Interventions Aquatic Therapy,Gait Training, Home Exercise Program,Manual Therapy,Neuromuscular Re- education,Self-Care/Home Management,Taping,Therapeutic Activities,Therapeutic Exercises Modalities Cold Pack/Ice Massage,Electric Stimulation,Hot Packs Discharge Physical Therapy Discharge Reasons Goals Met Discharge Comments Pt has done well with therapy and has significantly less knee pain with stairs and hills. He has been well- engaged with HEP and understands the importance of continuing independently.
== END 2022-02-06 09:42 | disposition home or self-care (01) ==
LOC: PHYS 09:45
PROVIDERS: Family Provider Student in an Organized Health Care Education/Training Program; PCP Student in an Organized Health Care Education/Training Program; Referring Provider Student in an Organized Health Care Education/Training Program; Visit Provider Student in an Organized Health Care Education/Training Program
DX: M17.0 Bilateral primary osteoarthritis of knee (principal); R26.2 Difficulty in walking, not elsewhere classified
CPT/HCPCS: 97110; 97140; 97161; 97530; 97535

== ENCOUNTER → 2022-09-10 09:08 | Outpatient (CLI) | payer OTHER, SELFPAY ==
[2022-09-10 09:46] LABS: Add Manual Diff / Slide Review NO; Basophils Absolute Auto 0 /uL (0-100); Basophils Percent Auto 0.7 % (0-2); Eosinophils Absolute Auto 200 /uL (0-450); Eosinophils Percent Auto 3.3 % (2-4); Hematocrit 41.3 % (41-53); Hemoglobin 14.4 g/dL (13.5-17.5); Lymphocytes Absolute Auto 2100 /uL (1100-4500); Lymphocytes Percent Auto 35.7 % (25-40); Mean Corpuscular HGB Conc 34.9 % (30-36); Mean Corpuscular Hemoglobin 32.3 PG (26-34); Mean Corpuscular Volume 92.6 fL (80-100); Monocytes Absolute Auto 700 /uL (0-900); Monocytes Percent Auto 11.3 % (3-14); Neutrophils Absolute Auto 2900 /uL (1500-7000); Platelet Count 192 X10^3/uL (150-400); Red Blood Cell Count 4.46 X10^6/uL (4.5-5.9); Red Cell Distribution Width 13.9 % (11.6-14.8); White Blood Cell Count 5.8 X10^3/uL (4.5-11.0)
[2022-09-10 10:07] LABS: Alanine Aminotransferase 20 IU/L (<50); Albumin 4.1 g/dL (3.5-5.0); Albumin Globulin Ratio 1.6 (1.0-2.8); Alkaline Phosphatase 35 U/L (38-126); Aspartate Aminotransferase 21 IU/L (17-59); BUN Creatinine Ratio 23.1 (6-22); Bilirubin Total 0.8 mg/dL (0.2-1.3); Blood Urea Nitrogen 18 mg/dL (9-20); Calcium 9.3 mg/dL (8.4-10.2); Carbon Dioxide 28 mmol/L (22-32); Chloride 102 mmol/L (98-107); Cholesterol 162 mg/dL (140-199); Estimated Glomerular Filt Rate > 60 mL/min (>60); Globulin 2.6 g/dL (1.7-4.1); Glucose 109 mg/dL (80-110); HDL Cholesterol 46 mg/dL (40-60); HEMOLYSIS < 15 (0-50); LDL Cholesterol Calculated 103 mg/dL (<100); Potassium 4.3 mmol/L (3.4-5.1); Sodium 137 mmol/L (137-145); Total Protein 6.7 g/dL (6.3-8.2); Triglycerides 66 mg/dL (35-150)
[2022-09-10 10:31] LABS: Appearance Urine UA CLEAR; Bilirubin Urine UA NEGATIVE (NEGATIVE); Color Urine UA YELLOW; Glucose Urine UA NEGATIVE (Negative); Ketones Urine UA NEGATIVE (NEGATIVE); Leukocyte Esterase Urine UA NEGATIVE (NEGATIVE); Nitrite Urine UA NEGATIVE (Negative); Occult Blood Urine UA NEGATIVE (Negative); Protein Urine UA NEGATIVE (Negative); Specific Gravity Urine UA 1.025 (1.000-1.035); Urobilinogen Urine UA 0.2 E.U./dL (0.2); pH Urine UA 5.5 (4.5-8.0)
[2022-09-10 10:37] LABS: Prostate Specific Antigen Scrn 1.29 ng/mL (0.1-4.0); TSH w/ Reflex to FT4 1.67 uIU/mL (0.47-4.68)
[2022-09-10 10:45] LABS: Bacteria Urine None Seen; Culture Indicated Urine Cult Not Indicated; RBC Urine None Seen (0-5/HPF); Squamous Epithelial Cell Urine None Seen (0-5/HPF); Urine Comments Microscopic Normal; WBC Urine None Seen (0-5/HPF)
== END ==
PROVIDERS: Family Provider Student in an Organized Health Care Education/Training Program; PCP Pediatrics; Referring Provider Pediatrics; Visit Provider Pediatrics
DX: Z00.00 Encounter for general adult medical examination without abnormal findings (principal); I10 Essential (primary) hypertension; Z12.5 Encounter for screening for malignant neoplasm of prostate; M17.0 Bilateral primary osteoarthritis of knee; Z86.19 Personal history of other infectious and parasitic diseases
CPT/HCPCS: 36415; 80053; 80061; 81001; 84443; 85025; 87522; G0103

== ENCOUNTER → 2023-12-08 14:58 | Outpatient (CLI) | payer OTHER, SELFPAY ==
[2023-12-08 15:56] LABS: Hematocrit 40.2 % (41-53); Mean Corpuscular HGB Conc 34.8 % (30-36); Mean Corpuscular Hemoglobin 32.7 PG (26-34); Mean Corpuscular Volume 94.1 fL (80-100); Platelet Count 200 X10^3/uL (150-400); Red Blood Cell Count 4.27 X10^6/uL (4.5-5.9); Red Cell Distribution Width 14.2 % (11.6-14.8)
[2023-12-08 16:50] LABS: BUN Creatinine Ratio 26.9 (6-22); Blood Urea Nitrogen 21 mg/dL (9-20); Carbon Dioxide 25 mmol/L (22-32); Chloride 105 mmol/L (98-107); Cholesterol 149 mg/dL (140-199); Estimated Glomerular Filt Rate > 60 mL/min (>60); Glucose 131 mg/dL (80-110); HDL Cholesterol 45 mg/dL (40-60); HEMOLYSIS < 15 (0-50); LDL Cholesterol Calculated 80 mg/dL (<100); Potassium 3.9 mmol/L (3.4-5.1); Sodium 137 mmol/L (137-145); Triglycerides 120 mg/dL (35-150)
== END ==
LOC: LAB 14:59
PROVIDERS: Family Provider Student in an Organized Health Care Education/Training Program; PCP Nurse Practitioner Family; Referring Provider Nurse Practitioner Family; Visit Provider Nurse Practitioner Family
DX: Z13.220 Encounter for screening for lipoid disorders (principal); R25.1 Tremor, unspecified; I10 Essential (primary) hypertension
CPT/HCPCS: 36415; 80048; 80061; 84443; 85027

== ENCOUNTER → 2024-07-20 11:43 | Outpatient (CLI) | payer OTHER, SELFPAY ==
[2024-07-20 12:24] LABS: Add Manual Diff / Slide Review NO; Basophils Absolute Auto 0 /uL (0-100); Basophils Percent Auto 0.4 % (0-2); Eosinophils Absolute Auto 100 /uL (0-450); Eosinophils Percent Auto 2.4 % (2-4); Hematocrit 41.6 % (41-53); Hemoglobin 14.4 g/dL (13.5-17.5); Lymphocytes Absolute Auto 2200 /uL (1100-4500); Lymphocytes Percent Auto 35.9 % (25-40); Mean Corpuscular HGB Conc 34.5 % (30-36); Mean Corpuscular Hemoglobin 32.9 PG (26-34); Mean Corpuscular Volume 95.2 fL (80-100); Monocytes Absolute Auto 800 /uL (0-900); Monocytes Percent Auto 12.4 % (3-14); Neutrophils Absolute Auto 3000 /uL (1500-7000); Neutrophils Percent Auto 48.9 % (50-75); Platelet Count 179 X10^3/uL (150-400); Red Blood Cell Count 4.37 X10^6/uL (4.5-5.9); Red Cell Distribution Width 14.5 % (11.6-14.8); White Blood Cell Count 6.1 X10^3/uL (4.5-11.0)
[2024-07-20 13:33] LABS: HEMOLYSIS < 15 (0-50); Iron 113 ug/dL (49-181)
[2024-07-20 13:36] LABS: Alanine Aminotransferase 22 IU/L (<50); Albumin 4.5 g/dL (3.5-5.0); Albumin Globulin Ratio 1.8 (1.0-2.8); Alkaline Phosphatase 41 U/L (38-126); Aspartate Aminotransferase 27 IU/L (17-59); BUN Creatinine Ratio 23.5 (6-22); Blood Urea Nitrogen 20 mg/dL (9-20); Calcium 9.6 mg/dL (8.4-10.2); Carbon Dioxide 25 mmol/L (22-32); Chloride 103 mmol/L (98-107); Estimated Glomerular Filt Rate > 60 mL/min (>60); Globulin 2.5 g/dL (1.7-4.1); Glucose 89 mg/dL (70-99); HEMOLYSIS < 15 (0-50); Potassium 4.4 mmol/L (3.4-5.1); Sodium 137 mmol/L (137-145)
[2024-07-20 13:46] LABS: Percent Iron Saturation 38 % (20-50); Total Iron Binding Capacity 297 ug/dL (261-462); Transferrin 235 mg/dL (206-381)
[2024-07-20 14:09] LABS: Thyroid Stimulating Hormone 1.76 uIU/mL (0.47-4.68)
[2024-07-20 15:38] LABS: Hep C Virus Ab w/Reflex Quant REACTIVE s/c (NEGATIVE)
== END ==
PROVIDERS: PCP Nurse Practitioner Family; Referring Provider Nurse Practitioner Family; Visit Provider Nurse Practitioner Family
DX: Z86.19 Personal history of other infectious and parasitic diseases (principal); D64.9 Anemia, unspecified; I10 Essential (primary) hypertension; E66.9 Obesity, unspecified; R42 Dizziness and giddiness
CPT/HCPCS: 36415; 80053; 83540; 83550; 84443; 85025; 86803; 87522

== ENCOUNTER → 2024-08-10 06:44 | Outpatient (CLI) | payer OTHER, SELFPAY ==
--- NOTE | 2024-08-10 06:45 | DI.ECHO.S_ITS ---
[facility]+ [facility] : : [address] : : [place] : : [id number] : : Phone: [phone] Echocardiogram Report + + :Name: MOE TOBIN Study Date: 08/10/2024 Height: 72 in : :Hospital ReadingLocation: Weight: 250 lb : : Gender: Male BSA: 2.3 m2 : :: 1950 Age: 73 yrs BP: 138/85 mmHg: :Reason For Study: DIZZINESS, LOWER EXTREMITY SWELLING : :Ordering Physician: LAVERN, : :NILA Performed By: Saniya Bunn : :Referring: NILA PUCKETT : + + Interpretation Summary The left ventricle is normal in size and wall thickness. Left ventricular systolic function appears normal without focal wall motion abnormalities. The ejection fraction is estimated to be 55-60%. Diastolic parameters suggest probable normal left ventricular diastolic function and normal filling pressures. The right ventricle is mildly dilated. The right ventricular systolic function is normal. The right ventricular systolic pressure is estimated to be at least 38 mmHg based on an estimated right atrial pressure of 3 mm Hg. The left atrial size is normal. There is no significant valvular heart disease. The aortic root is normal size. Procedure: A two-dimensional transthoracic echocardiogram with color flow and Doppler was performed. The study quality was technically adequate. There is no prior echocardiogram noted for this patient. The patient was in sinus rhythm with heart rates between 66-96 bpm during the exam. Left Ventricle: The left ventricle is normal in size and wall thickness. Left ventricular systolic function appears normal without focal wall motion abnormalities. The ejection fraction is estimated to be 55-60%. Diastolic parameters suggest probable normal left ventricular diastolic function and normal filling pressures. Right Ventricle: The right ventricle is mildly dilated. The right ventricular systolic function is normal. Atria: The left atrial size is normal. Right atrial size is normal. There is no Doppler evidence for an interatrial shunt. Mitral Valve: The mitral valve leaflets appear to open well. There is no mitral regurgitation noted. Aortic Valve: The aortic valve is trileaflet. The aortic valve opens well. There is no aortic valve stenosis. No aortic regurgitation is present. Tricuspid Valve: The tricuspid valve leaflets are thin and pliable. There is mild tricuspid regurgitation. The right ventricular systolic pressure is estimated to be at least 38 mmHg based on an estimated right atrial pressure of 3 mm Hg. Pulmonic Valve: The pulmonic valve is not well visualized. There is trace pulmonic regurgitation. There is no significant valvular heart disease. Great Vessels: The aortic root is normal size. The dimensions of the ascending aorta are normal. The IVC is of normal diameter and collapses greater than 50% with a sniff. This suggests a low right atrial pressure of 3 mm Hg. Pericardium/ Pleura There is no pericardial effusion. There is no pleural effusion. MMode/2D Measurements & Calculations LVIDd: 5.0 cm LVOT diam: 2.2 cm LVIDs: 3.0 cm Ao root diam: 3.8 cm FS: 39.4 % asc Aorta Diam: 3.5 cm EPSS: 0.70 cm Ao Arch Diam (Prox Trans): 3.2 cm IVSd: 1.0 cm LVPWd: 0.97 cm LV yao. diameter/BSA (cm/m^2): 2.1 LV sys. diameter/BSA (cm/m^2): 1.3 LA A2 area: 22.0 cm2 RA long axis: 6.1 cm LA A4 area: 21.4 cm2 RA area: 23.5 cm2 LA length (vol): 5.9 cm RA vol: 77.3 ml LA vol: 67.9 ml RA : 33.0 ml/m2 LA vol index: 29.0 ml/m2 IVC diam: 1.3 cm RVD1 (basal): 4.3 cm RVD2 (mid): 4.1 cm TAPSE: 1.8 cm Doppler Measurements & Calculations Ao V2 max: 149.0 cm/sec LVOT Max Stuart: 127.4 cm/sec Ao V2 mean: 95.2 cm/sec LV V1 max P.5 mmHg Ao max P.9 mmHg LV V1 VTI: 26.3 cm Ao mean P.2 mmHg BREANA(I,D): 3.5 cm2 Ao V2 VTI: 29.9 cm BREANA(V,D): 3.4 cm2 sev ratio: 0.88 BREANA indexed to BSA (cm^2/m^2): 1.5 MV E max stuart: 74.5 cm/sec TR max stuart: 297.0 cm/sec MV A max stuart: 57.4 cm/sec TR max P.3 mmHg MV E/A: 1.3 PA V2 max: 114.9 cm/sec Med Peak E' Stuart: 8.0 cm/sec PA V2 mean: 77.8 cm/sec E/E' med: 9.3 PA mean P.8 mmHg Lat Peak E' Stuart: 9.9 cm/sec PA pr(Accel): 21.6 mmHg E/E' lat: 7.6 E/e' average: 8.4 MV dec time: 0.24 sec SV(LVOT): 104.0 ml Reading Physician:01:12 PM
== END ==
LOC: ECHO 06:45
PROVIDERS: PCP Nurse Practitioner Family; Referring Provider Nurse Practitioner Family; Visit Provider Nurse Practitioner Family
DX: I10 Essential (primary) hypertension (principal); R42 Dizziness and giddiness; M79.89 Other specified soft tissue disorders; I51.7 Cardiomegaly
CPT/HCPCS: 93306

== ENCOUNTER → 2024-08-10 06:46 | Outpatient (CLI) | payer OTHER, SELFPAY ==
--- NOTE | 2024-08-10 06:46 | DI.US.S_ITS ---
PROCEDURE: US CAROTID DOPPLER BI INDICATIONS: dizziness, lower extremity swelling, HTN,loss of equilibrium TECHNIQUE: Color and pulse Doppler interrogation was performed of both carotid systems, with image documentation and velocity measurements. COMPARISON: None. FINDINGS: Stenosis calculations are based on SRU (Society of Radiologists in Ultrasound) criteria. Right side: Brachial blood pressure: 124/80 mm Hg. Common carotid artery peak systolic velocity: 75 cm/sec. Internal carotid artery peak systolic velocity: 92 cm/sec. Internal carotid artery end diastolic velocity: 29 cm/sec. External carotid artery peak systolic velocity: 93 cm/sec. ICA/CCA peak systolic ratio: 1.2 . Morales scale imaging description: No focal stenosis seen Percent internal carotid artery stenosis: Less than 50% . Vertebral artery: Flow direction is antegrade. Left side: Brachial blood pressure: 176/76 mm Hg. Common carotid artery peak systolic velocity: 84 cm/sec. Internal carotid artery peak systolic velocity: 84 cm/sec. Internal carotid artery end diastolic velocity: 31 cm/sec. External carotid artery peak systolic velocity: 106 cm/sec. ICA/CCA peak systolic ratio: 1.0 . Morales scale imaging description: No focal stenosis seen Percent internal carotid artery stenosis: Less than 50% . Vertebral artery: Flow direction is antegrade. IMPRESSION: 1. In the right carotid artery, there is less than 50% stenosis based on peak systolic velocity criteria. 2. In the left carotid artery, there is less than 50% stenosis based on peak systolic velocity criteria. 3. Antegrade vertebral arteries. Dictated by: Charly Fagan M.D. on 08/10/2024 at 17:53 Approved by: Charly Fagan M.D. on 08/10/2024 at 17:55
--- NOTE | 2024-08-10 19:54 | DI.NM.S_ITS ---
DATE OF SERVICE: 08/10/2024 EXERCISE TREADMILL STRESS TEST PROCEDURE PERFORMED: Exercise treadmill stress test without imaging. ORDERING PROVIDER: RHYS Diaz. INDICATIONS: The patient is a 73-year-old male with dysequlibrium and hypertension. FINDINGS: 1. The patient was able to exercise for 6 minutes 11 seconds on a standard [facility] protocol suggesting mildly impaired exercise capacity with an DEJA of +5%, achieving 7.0 METS. 2. He had a normal heart rate response to exercise, achieving a maximum heart rate of 127 bpm (88% of his predicted maximum). He had a mild hypertensive blood pressure response to exercise with a resting blood pressure of 130/88, increasing to a maximum of 200/90. 3. He had moderate exertional dyspnea but no chest discomfort or other anginal symptoms. 4. His resting ECG shows sinus rhythm with a borderline intraventricular conduction delay but normal ST segments. There were no significant ST-segment shifts with stress. He had occasional PACs and PVCs with stress but no complex ectopy. IMPRESSION: 1. Normal exercise treadmill stress test for ischemia. 2. Mildly impaired exercise capacity without angina or arrhythmia except isolated PACs and PVCs. 3. He had a mild hypertensive blood pressure response to exercise. Cayla Ulices - /lisa/RUTH doc#: [id number]/job#: [id number] dd: 08/10/2024 17:20:00 dt: 08/10/2024 19:42:00 DICTATING MD/COPIES TO: Francois Hernández MD; RHYS Diaz COPIES WERNER: TYRESE; ; RHYS Diaz
== END ==
PROVIDERS: PCP Nurse Practitioner Family; Referring Provider Nurse Practitioner Family; Visit Provider Nurse Practitioner Family
DX: R42 Dizziness and giddiness (principal); I10 Essential (primary) hypertension; M79.89 Other specified soft tissue disorders; I51.7 Cardiomegaly; I49.3 Ventricular premature depolarization; I49.1 Atrial premature depolarization; I65.23 Occlusion and stenosis of bilateral carotid arteries
CPT/HCPCS: 93017; 93306; 93880

== ENCOUNTER → 2024-09-04 10:41 | Outpatient (CLI) | payer OTHER, SELFPAY | LOC: CAR 10:41 | PROVIDERS: PCP Nurse Practitioner Family; Referring Provider Nurse Practitioner Family; Visit Provider Nurse Practitioner Family | DX: R53.1 Weakness (principal) | CPT/HCPCS: 93246 ==